=== PATIENT | male | born 1940 | race African-American/Black ===

== ENCOUNTER 2019-02-17 12:41 | Inpatient (IN) | payer MEDICARE, MEDICAID ==
[~2019-02-17] VITALS: Ht 177.8 cm; Wt 112.2 kg
[2019-02-17 12:50] VITALS: BP 86/45
--- NOTE | 2019-02-17 13:48 | Emergency Room Report ---
History of Present Illness General Chief Complaint: Abnormal Labs Source: Patient, EMS Present Illness HPI Patient discharged 8 days ago from [facility]. He was admitted for edema and having difficulty walking. Apparently prior to that hospitalization he stopped taking his medication as his was hospitalized multiple times for strokes and he was trying to take care of her. He says that his potassium was "0" and then replaced. Allegedly sent in for high potassium at this time. He states that the edema is much better. He's had a convalescent rehabilitation facility at this time. No fevers, chills, chest pain, palpitations, nausea, vomiting, diarrhea, dysuria , abdominal pain, shortness of breath, depression, visual changes, headache. History of diabetes History of hypertension History of anemia Allergies: Coded Allergies: No Known Allergies (Unverified , 02/17/19) Patient History Past Medical History: see triage record Social History: Reports: smoking Social History Narrative Reviewed Nursing Documentation: PMH: Agreed; PSxH: Agreed Nursing Documentation-PMH Hx Cardiac Problems: Yes - anemia, hperlipidemia Hx Hypertension: Yes Hx Diabetes: Yes Review of Systems All Other Systems: negative except mentioned in HPI Physical Exam Vital Signs Date Time Temp Pulse Resp B/P (MAP) Pulse Ox O2 Delivery O2 Flow Rate FiO2 02/17/19 12:32 98.6 88 20 86/45 (59) 97 Room Air Sp02 EP Interpretation: reviewed, normal General Appearance: well appearing, no apparent distress, GCS 15, non-toxic Head: normocephalic Eyes: bilateral eye normal inspection, bilateral eye PERRL, bilateral eye EOMI ENT: moist mucus membranes Neck: supple Respiratory: lungs clear, normal breath sounds Cardiovascular #1: regular rate, rhythm, no edema Cardiovascular #2: 2+ radial (R) Gastrointestinal: normal inspection, normal bowel sounds, non tender, no mass, non-distended Musculoskeletal: back normal, gait/station normal, normal range of motion Neurologic: alert, oriented x3, grossly normal Psychiatric: mood/affect normal Skin: normal inspection, warm/dry Medical Decision Making Diagnostic Impression: Primary Impression: ARF (acute renal failure) Qualified Codes: N17.9 - Acute kidney failure, unspecified Additional Impression: Hyperkalemia ER Course Patient presents with alleged hyperkalemia. Differential includes renal failure , acute overaggressive potassium replacement, abnormal medications amongst others. The patient will be evaluated with EKG, chest x-ray and labs. The patient will be treated with general gentle IV hydration initially. EKG with sinus bradycardia with nonspecific ST-T wave changes rate of 59. CXR clear. Labs with ARF and elevated K. ARF, hyperkalemia. Treatment begun. Emergent dialysis not indicated. FE sodium suggests pre-renal (0.3%). Hydration continued. Admit telemetry, Dr. Castellon. Laboratory Tests Test 02/17/19 13:50 White Blood Count 9.0 K/UL (4.8-10.8) Red Blood Count 4.60 M/UL (4.70-6.10) L Hemoglobin 12.0 G/DL (14.2-18.0) L Hematocrit 39.5 % (42.0-52.0) L Mean Corpuscular Volume 86 FL (80-99) Mean Corpuscular Hemoglobin 26.1 PG (27.0-31.0) L Mean Corpuscular Hemoglobin Concent 30.4 G/DL (32.0-36.0) L Red Cell Distribution Width 16.8 % (11.6-14.8) H Platelet Count 594 K/UL (150-450) H Mean Platelet Volume 6.3 FL (6.5-10.1) L Neutrophils (%) (Auto) 52.0 % (45.0-75.0) Lymphocytes (%) (Auto) 34.9 % (20.0-45.0) Monocytes (%) (Auto) 9.4 % (1.0-10.0) Eosinophils (%) (Auto) 2.3 % (0.0-3.0) Basophils (%) (Auto) 1.4 % (0.0-2.0) Prothrombin Time 10.8 SEC (9.30-11.50) Prothrombin Time INR 1.0 (0.9-1.1) PTT 32 SEC (23-33) Urine Color Radha Urine Appearance Slightly cloudy Urine pH 5 (4.5-8.0) Urine Specific [place] 1.020 (1.005-1.035) Urine Protein 2+ (NEGATIVE) H Urine Glucose (UA) Negative (NEGATIVE) Urine Ketones 1+ (NEGATIVE) H Urine Blood 1+ (NEGATIVE) H Urine Nitrite Negative (NEGATIVE) Urine Bilirubin 2+ (NEGATIVE) H Urine Ictotest Negative (NEGATIVE) Urine Urobilinogen 1 MG/DL (0.0-1.0) H Urine Leukocyte Esterase 3+ (NEGATIVE) H Urine RBC 0-2 /HPF (0 - 0) H Urine WBC 20-30 /HPF (0 - 0) H Urine Squamous Epithelial Cells Moderate /LPF (NONE/OCC) H Urine Bacteria Moderate /HPF (NONE) H Urine Random Sodium 32 mmol/L (20-110) Urine Creatinine 322.1 MG/DL (30.0-125.0) H Sodium Level 139 MMOL/L (136-145) Potassium Level 6.7 MMOL/L (3.5-5.1) *H Chloride Level 108 MMOL/L (98-107) H Carbon Dioxide Level 20 MMOL/L (21-32) L Anion Gap 10 mmol/L (5-15) Blood Urea Nitrogen 42 mg/dL (7-18) H Creatinine 3.7 MG/DL (0.55-1.30) H Estimate Glomerular Filtration Rate mL/min (>60) Glucose Level 99 MG/DL (74-106) Calcium Level 9.3 MG/DL (8.5-10.1) Total Bilirubin 0.2 MG/DL (0.2-1.0) Aspartate Amino Transferase (AST) 20 U/L (15-37) Alanine Aminotransferase (ALT) 18 U/L (12-78) Alkaline Phosphatase 49 U/L (46-116) Total Creatine Kinase 70 U/L (26-308) Troponin I 0.000 ng/mL (0.000-0.056) Pro-B-Type Natriuretic Peptide 67 pg/mL (0-125) Total Protein 7.9 G/DL (6.4-8.2) Albumin 3.0 G/DL (3.4-5.0) L Globulin 4.9 g/dL Albumin/Globulin Ratio 0.6 (1.0-2.7) L EKG Diagnostic Results Rate: bradycardiac Rhythm: NSR ST Segments: no acute changes Rhythm Strip Diag. Results EP Interpretation: yes Rhythm: no PVC's, no ectopy, other - Bradycardia Chest X-Ray Diagnostic Results Chest X-Ray Diagnostic Results : Chest X-Ray Ordered: Yes # of Views/Limited/Complete: 1 View Indication: Other EP Interpretation: Yes Interpretation: no consolidation, no effusion, no pneumothorax Impression: No acute disease Electronically Signed by: Electronically signed by Alex Briggs MD Last Vital Signs Date Time Temp Pulse Resp B/P (MAP) Pulse Ox O2 Delivery O2 Flow Rate FiO2 02/17/19 21:00 Room Air 02/17/19 20:00 78 02/17/19 20:00 97.8 20 120/58 (78) 99 Status: improved Disposition: ADMITTED INPATIENT Condition: Serious Alex Briggs MD Feb 17, 2019 13:48
[2019-02-17] MEDS: Sodium Chloride 550 ML IV SCH ×3 (13:54→17:50)
[2019-02-17 14:12] LABS: APPEARANCE,URINE SLIGHTLY CLOUDY; BILIRUBIN, URINE 2+ (NEGATIVE); COLOR,URINE AMBER; GLUCOSE, URINE (UA) NEGATIVE (NEGATIVE); KETONES,URINE 1+ (NEGATIVE); LEUKOCYTE ESTERASE ,URINE 3+ (NEGATIVE); NITRITE,URINE NEGATIVE (NEGATIVE); PH,URINE 5 (4.5-8.0); PROTEIN,URINE 2+ (NEGATIVE); UROBILINOGEN,URINE 1 MG/DL (0.0-1.0)
[2019-02-17 14:14] LABS: BASOPHILS % (AUTO) 1.4 % (0.0-2.0); EOSINOPHILS % (AUTO) 2.3 % (0.0-3.0); HEMATOCRIT 39.5 % (42.0-52.0); LYMPHOCYTES % (AUTO) 34.9 % (20.0-45.0); MEAN CORPUSCULAR VOLUME 86 FL (80-99); MONOCYTES % (AUTO) 9.4 % (1.0-10.0); PLATELET COUNT 594 K/UL (150-450); RED CELL DISTRIBUTION WIDTH 16.8 % (11.6-14.8)
[2019-02-17 14:43] LABS: ALANINE AMINOTRANSFERASE 18 U/L (12-78); ALBUMIN/GLOBULIN RATIO 0.6 (1.0-2.7); ALKALINE PHOSPHATASE 49 U/L (46-116); ANION GAP 10 mmol/L (5-15); ASPARTATE AMINO TRANSFERASE 20 U/L (15-37); BILIRUBIN,TOTAL 0.2 MG/DL (0.2-1.0); BLOOD UREA NITROGEN 42 mg/dL (7-18); CALCIUM 9.3 MG/DL (8.5-10.1); CARBON DIOXIDE 20 MMOL/L (21-32); CHLORIDE 108 MMOL/L (98-107); CREATINE KINASE 70 U/L (26-308); CREATININE 3.7 MG/DL (0.55-1.30); SODIUM 139 MMOL/L (136-145)
[2019-02-17] MEDS ORDERED: cefTRIAXone 1 GM in NS 55 ML IVPB ONE (14:45)
[2019-02-17 14:46] LABS: POTASSIUM 6.7 MMOL/L (3.5-5.1)
[2019-02-17] MEDS ORDERED: Calcium Gluconate 1gm/10ml vial IVP ONE (15:00)
[2019-02-17] MEDS ORDERED: Sodium Polystyrene Sulfonate 15gm Powder ORAL ONE (15:00)
[2019-02-17] MEDS ORDERED: Albuterol/Ipratropium 3ml neb HHN PRN (16:00)
[2019-02-17] MEDS ORDERED: Morphine Sulfate 2mg/ml Inj(IV/IM USE ONLY) IVP PRN (16:00)
[2019-02-17] MEDS ORDERED: Zolpidem 5mg tab ORAL PRN (16:00)
[2019-02-17 16:11] VITALS: BP 121/59
[2019-02-17] MEDS ORDERED: Dextrose 50% 25ml Syringe IV PRN (16:15)
[2019-02-17] MEDS: NovoLOG Insulin Flexpen SUBQ SCH ×2 (16:30→21:10)
[2019-02-17] MEDS ORDERED: NKM (16:44)
[2019-02-17 17:35] VITALS: BP 118/55
--- NOTE | 2019-02-17 19:00 | History & Physical ---
History and Physical History & Physicial Dictated for Int Med-Dr Castellon no.[id number]. Braeden Barnes MD Feb 17, 2019 19:00
[2019-02-17 20:00] VITALS: BP 120/58
[2019-02-17 20:48] LABS: ANION GAP 7 mmol/L (5-15); BLOOD UREA NITROGEN 43 mg/dL (7-18); CALCIUM 8.8 MG/DL (8.5-10.1); CARBON DIOXIDE 21 MMOL/L (21-32); CHLORIDE 108 MMOL/L (98-107); CREATININE 3.1 MG/DL (0.55-1.30); POTASSIUM 5.3 MMOL/L (3.5-5.1); SODIUM 136 MMOL/L (136-145)
[2019-02-17] MEDS: Heparin 5000 units/ml inj SUBQ SCH (21:15)
[2019-02-18] VITALS: BP 146/72
--- NOTE | 2019-02-18 | History and Physical Report ---
DATE OF ADMISSION: 02/17/2019 CHIEF COMPLAINT: The patient is a 78-year-old male, who presents with a chief complaint of abnormal laboratories. HISTORY OF PRESENT ILLNESS: The patient was apparently admitted to [facility] 2 weeks ago. The patient was discharged 8 days ago. The patient was admitted for generalized weakness. The patient was found to have hypokalemia. The patient was discharged to [facility]. Routine laboratories drawn at [facility] revealed potassium of 6.2. BUN and creatinine were found to be elevated at 34 and 2.87. The patient was referred to [facility] for new onset renal failure and hyperkalemia. The patient is admitted for hyperkalemia and new onset renal failure. REVIEW OF SYSTEMS: CONSTITUTIONAL: The patient denies weight loss or weight gain. The patient denies fevers or chills. HEENT: The patient denies ear or throat pain. The patient denies headache. CARDIOVASCULAR: The patient denies palpitations or chest pain. CHEST: The patient denies wheeze or shortness of breath. ABDOMINAL: The patient denies nausea, vomiting, diarrhea, or constipation. GENITOURINARY: The patient denies dysuria or increased frequency of urination. NEUROMUSCULAR: The patient complains of generalized weakness as above. The patient denies seizures. PAST MEDICAL HISTORY: Significant for: 1. Hypertension. 2. Diabetes type 2. 3. Osteoarthritis, generalized. 4. Gout. 5. Hypercholesterolemia. 6. Anemia. 7. Gastroesophageal reflux disease. PAST SURGICAL HISTORY: The patient denies. CURRENT MEDICATIONS: 1. Allopurinol 300 mg p.o. daily. 2. Aspirin 81 mg p.o. daily. 3. Lovenox 40 mg subcutaneously daily. 4. Iron sulfate 325 mg p.o. daily. 5. Folic acid 1 mg p.o. daily. 6. Indomethacin 50 mg p.o. 3 times daily. 7. Lispro sliding scale. 8. Magnesium oxide 400 mg p.o. twice daily. 9. Nifedipine ER 90 mg p.o. daily. 10. [place] 5/325 mg one tablet p.o. q.4 hours p.r.n. 11. Potassium chloride 20 mEq p.o. twice daily. 12. Ranitidine 150 mg p.o. twice daily. 13. Simvastatin 10 mg p.o. daily. 14. Atenolol. ALLERGIES: No known drug allergies. SOCIAL HISTORY: The patient is . The patient denies tobacco use and is currently on a NicoDerm patch. The patient admits to rare alcohol use. PHYSICAL EXAMINATION: VITAL SIGNS: Temperature 98.6, respirations 20, pulse 88, and blood pressure 86/45. GENERAL: The patient is a well-developed and well-nourished male, in no apparent distress. HEENT: Eyes, pupils are equal and responsive to light and accommodation. Extraocular movements are intact. NECK: Supple without lymphadenopathy. CHEST: Lungs are clear to auscultation bilaterally without wheezes or rales. CARDIOVASCULAR: Regular rhythm and rate. S1, S2 are normal without murmurs, rubs, or gallops. ABDOMEN: Soft, nontender, and nondistended. Positive bowel sounds. No evidence of hepatosplenomegaly. Currently, no rebound or guarding noted. EXTREMITY: Negative for clubbing, cyanosis, or edema. RECTAL/GENITAL: Refused. NEUROLOGIC: Cranial nerves II through XII are grossly intact without focal deficits. Motor strength is 5/5 bilaterally. Deep tendon reflexes are 2+ plantar. LABORATORY STUDIES: WBC 9.2, hemoglobin 12.2, hematocrit 39.5, and platelets 594,000. Sodium 139, potassium 6.7, chloride 108, CO2 20, BUN 42, creatinine 3.7, and glucose 99. Troponin 0.0. ASSESSMENT: This is a 78-year-old male. 1. Hyperkalemia. 2. New onset renal failure. 3. Hypertension. 4. Diabetes type 2. 5. Gout. 6. Osteoarthritis. 7. Gastroesophageal reflux disease. 8. Osteoarthritis. 9. Generalized weakness. TREATMENT: 1. Hyperkalemia/renal failure. The patient has received Kayexalate. A Nephrology consultation has been obtained with Dr. Vinson. Hyperkalemia may be secondary to renal failure. We will follow recommendations of Nephrology. 2. Hypertension. The patient is currently hypotensive. 3. Diabetes type 2. A NovoLog sliding scale has been instituted. 4. Gout. Continue allopurinol as above. 5. Osteoarthritis. 6. Gastroesophageal reflux disease. Continue ranitidine as above. 7. Osteoarthritis. Braeden Barnes M.D. DR: JAMISON JOB#: [id number] CC:
[2019-02-18] MEDS: Sodium Chloride 550 ML IV SCH ×2 (03:40→06:24)
[2019-02-18 04:00] VITALS: BP 115/55
[2019-02-18] MEDS: NovoLOG Insulin Flexpen SUBQ SCH ×4 (06:07→21:00)
[2019-02-18 08:00] VITALS: BP 104/75
[2019-02-18] MEDS: Sodium Polystyrene Sulfonate 15gm Powder ORAL SCH (09:06)
[2019-02-18] MEDS: Heparin 5000 units/ml inj SUBQ SCH ×2 (09:06→21:46)
[2019-02-18 11:07] LABS: EOSINOPHILS % (AUTO) 3.4 % (0.0-3.0); HEMATOCRIT 39.7 % (42.0-52.0); LYMPHOCYTES % (AUTO) 35.4 % (20.0-45.0); MEAN CORPUSCULAR VOLUME 86 FL (80-99); MONOCYTES % (AUTO) 9.4 % (1.0-10.0); NEUTROPHILS % (AUTO) 50.9 % (45.0-75.0); PLATELET COUNT 591 K/UL (150-450); RED BLOOD COUNT 4.64 M/UL (4.70-6.10); RED CELL DISTRIBUTION WIDTH 17.1 % (11.6-14.8); WHITE BLOOD COUNT 7.4 K/UL (4.8-10.8)
[2019-02-18 11:16] LABS: ALBUMIN 2.8 G/DL (3.4-5.0); ANION GAP 7 mmol/L (5-15); ASPARTATE AMINO TRANSFERASE 14 U/L (15-37); BLOOD UREA NITROGEN 39 mg/dL (7-18); CALCIUM 8.8 MG/DL (8.5-10.1); CARBON DIOXIDE 24 MMOL/L (21-32); CHLORIDE 108 MMOL/L (98-107); POTASSIUM 5.2 MMOL/L (3.5-5.1); SODIUM 139 MMOL/L (136-145)
[2019-02-18 11:28] LABS: PHOSPHORUS 3.1 MG/DL (2.5-4.9)
[2019-02-18 11:42] LABS: ALANINE AMINOTRANSFERASE 20 U/L (12-78); ALKALINE PHOSPHATASE 49 U/L (46-116); BILIRUBIN,TOTAL 0.2 MG/DL (0.2-1.0); CHOLESTEROL 111 MG/DL (< 200); CREATININE 2.1 MG/DL (0.55-1.30); HDL CHOLESTEROL 33 MG/DL (40-60); TRIGLYCERIDES 122 MG/DL (30-150)
[2019-02-18 11:45] LABS: ALBUMIN/GLOBULIN RATIO 1.9 (1.0-2.7)
[2019-02-18 12:00] VITALS: BP 132/69
--- NOTE | 2019-02-18 12:53 | Consultation ---
History of Present Illness General Date patient seen: Feb 18, 2019 Chief Complaint: Abnormal Labs Present Illness HPI 78 year old male with hx diabetes, hypertension, Gout, obesity, brought in by paramedics because of increased K. He was admitted to rehab for edema and having difficulty walking. He was found to be in renal failure and admitted to telemetry for further management. No fevers, chills, chest pain, palpitations, nausea, vomiting, diarrhea, dysuria , abdominal pain, shortness of breath, depression, visual changes, headache. Allergies: Coded Allergies: No Known Allergies (Unverified , 02/17/19) Medication History Scheduled No Known Medications* (NKM - No Known Medications*), 0 ., (Reported) Patient History Healthcare decision maker N Resuscitation status Full Code Advanced Directive on File Past Medical/Surgical History Past Medical/Surgical History: (1) Gout (2) Diabetes mellitus Review of Systems Constitutional: Reports: no symptoms Neurological: Reports: no symptoms Physical Exam General Appearance: WD/WN, no apparent distress Lines, tubes and drains: peripheral HEENT: normocephalic, atraumatic Neck: non-tender, normal alignment Respiratory/Chest: chest wall non-tender, lungs clear Cardiovascular/Chest: normal peripheral pulses, normal rate Abdomen: normal bowel sounds, non tender Extremities: moderate edema Skin Exam: normal pigmentation Last 24 Hour Vital Signs Date Time Temp Pulse Resp B/P (MAP) Pulse Ox O2 Delivery O2 Flow Rate FiO2 02/18/19 12:00 97.7 88 20 132/69 (90) 99 02/18/19 09:00 Room Air 02/18/19 08:00 83 02/18/19 08:00 98.7 89 20 104/75 (85) 93 02/18/19 06:38 91 18 96 Room Air 21 02/18/19 04:00 83 02/18/19 04:00 98.9 87 18 115/55 (75) 96 02/18/19 00:00 97.5 77 18 146/72 (96) 99 02/18/19 00:00 73 02/17/19 21:00 Room Air 02/17/19 20:00 78 02/17/19 20:00 97.8 90 20 120/58 (78) 99 02/17/19 17:35 97.5 92 20 118/55 (76) 98 02/17/19 17:31 Room Air 02/17/19 17:00 98.6 82 22 121/59 94 Room Air 02/17/19 16:11 82 22 121/59 94 Room Air 02/17/19 12:50 98.6 88 20 86/45 97 Room Air Intake and Output 02/17/19 02/18/19 19:00 07:00 Intake Total 1605 ml Balance 1605 ml Intake Oral 400 ml IV Total 1205 ml # Voids 2 2 # Bowel Movements 2 Laboratory Tests Test 02/17/19 13:50 02/17/19 20:32 02/18/19 10:45 White Blood Count 9.0 K/UL (4.8-10.8) 7.4 K/UL (4.8-10.8) Red Blood Count 4.60 M/UL (4.70-6.10) L 4.64 M/UL (4.70-6.10) L Hemoglobin 12.0 G/DL (14.2-18.0) L 12.0 G/DL (14.2-18.0) L Hematocrit 39.5 % (42.0-52.0) L 39.7 % (42.0-52.0) L Mean Corpuscular Volume 86 FL (80-99) 86 FL (80-99) Mean Corpuscular Hemoglobin 26.1 PG (27.0-31.0) L 25.8 PG (27.0-31.0) L Mean Corpuscular Hemoglobin Concent 30.4 G/DL (32.0-36.0) L 30.1 G/DL (32.0-36.0) L Red Cell Distribution Width 16.8 % (11.6-14.8) H 17.1 % (11.6-14.8) H Platelet Count 594 K/UL (150-450) H 591 K/UL (150-450) H Mean Platelet Volume 6.3 FL (6.5-10.1) L 6.6 FL (6.5-10.1) Neutrophils (%) (Auto) 52.0 % (45.0-75.0) 50.9 % (45.0-75.0) Lymphocytes (%) (Auto) 34.9 % (20.0-45.0) 35.4 % (20.0-45.0) Monocytes (%) (Auto) 9.4 % (1.0-10.0) 9.4 % (1.0-10.0) Eosinophils (%) (Auto) 2.3 % (0.0-3.0) 3.4 % (0.0-3.0) H Basophils (%) (Auto) 1.4 % (0.0-2.0) 1.0 % (0.0-2.0) Prothrombin Time 10.8 SEC (9.30-11.50) Prothromb Time International Ratio 1.0 (0.9-1.1) Activated Partial Thromboplast Time 32 SEC (23-33) Urine Color Radha Urine Appearance Slightly cloudy Urine pH 5 (4.5-8.0) Urine Specific [place] 1.020 (1.005-1.035) Urine Protein 2+ (NEGATIVE) H Urine Glucose (UA) Negative (NEGATIVE) Urine Ketones 1+ (NEGATIVE) H Urine Blood 1+ (NEGATIVE) H Urine Nitrite Negative (NEGATIVE) Urine Bilirubin 2+ (NEGATIVE) H Urine Ictotest Negative (NEGATIVE) Urine Urobilinogen 1 MG/DL (0.0-1.0) H Urine Leukocyte Esterase 3+ (NEGATIVE) H Urine RBC 0-2 /HPF (0 - 0) H Urine WBC 20-30 /HPF (0 - 0) H Urine Squamous Epithelial Cells Moderate /LPF (NONE/OCC) H Urine Bacteria Moderate /HPF (NONE) H Urine Random Sodium 32 mmol/L (20-110) Urine Creatinine 322.1 MG/DL (30.0-125.0) H Sodium Level 139 MMOL/L (136-145) 136 MMOL/L (136-145) 139 MMOL/L (136-145) Potassium Level 6.7 MMOL/L (3.5-5.1) *H 5.3 MMOL/L (3.5-5.1) H 5.2 MMOL/L (3.5-5.1) H Chloride Level 108 MMOL/L (98-107) H 108 MMOL/L (98-107) H 108 MMOL/L (98-107) H Carbon Dioxide Level 20 MMOL/L (21-32) L 21 MMOL/L (21-32) 24 MMOL/L (21-32) Anion Gap 10 mmol/L (5-15) 7 mmol/L (5-15) 7 mmol/L (5-15) Blood Urea Nitrogen 42 mg/dL (7-18) H 43 mg/dL (7-18) H 39 mg/dL (7-18) H Creatinine 3.7 MG/DL (0.55-1.30) H 3.1 MG/DL (0.55-1.30) H 2.1 MG/DL (0.55-1.30) H Estimat Glomerular Filtration Rate mL/min (>60) mL/min (>60) mL/min (>60) Glucose Level 99 MG/DL (74-106) 113 MG/DL (74-106) H 90 MG/DL (74-106) Calcium Level 9.3 MG/DL (8.5-10.1) 8.8 MG/DL (8.5-10.1) 8.8 MG/DL (8.5-10.1) Total Bilirubin 0.2 MG/DL (0.2-1.0) 0.2 MG/DL (0.2-1.0) Aspartate Amino Transf (AST/SGOT) 20 U/L (15-37) 14 U/L (15-37) L Alanine Aminotransferase (ALT/SGPT) 18 U/L (12-78) 20 U/L (12-78) Alkaline Phosphatase 49 U/L (46-116) 49 U/L (46-116) Total Creatine Kinase 70 U/L (26-308) Troponin I 0.000 ng/mL (0.000-0.056) Pro-B-Type Natriuretic Peptide 67 pg/mL (0-125) Total Protein 7.9 G/DL (6.4-8.2) 7.5 G/DL (6.4-8.2) Albumin 3.0 G/DL (3.4-5.0) L 2.8 G/DL (3.4-5.0) L Globulin 4.9 g/dL 4.7 g/dL Albumin/Globulin Ratio 0.6 (1.0-2.7) L 1.9 (1.0-2.7) Hemoglobin A1c 6.2 % (4.3-6.0) H Uric Acid 7.6 MG/DL (2.6-7.2) H Phosphorus Level 3.1 MG/DL (2.5-4.9) Magnesium Level 1.7 MG/DL (1.8-2.4) L Triglycerides Level 122 MG/DL (30-150) Cholesterol Level 111 MG/DL (< 200) LDL Cholesterol 60 mg/dL (<100) HDL Cholesterol 33 MG/DL (40-60) L Cholesterol/HDL Ratio 3.4 (3.3-4.4) Thyroid Stimulating Hormone (TSH) 2.057 uiU/mL (0.358-3.740) Microbiology Date/Time Source Procedure Growth Status 02/17/19 16:10 Nasal Nares MRSA Culture - Final NO METHICILLIN RESISTANT STAPH AUREUS... Complete 02/17/19 13:50 Urine,Clean Catch Urine Culture - Preliminary Gram Negative Bacillus 1 Resulted Height (Feet): 5 Height (Inches): 10.00 Weight (Pounds): 238 Medications Current Medications Medications (Trade) Dose Ordered Sig/Benjamin Route PRN Reason Start Time Stop Time Status Last Admin Dose Admin Acetaminophen (Tylenol) 650 mg Q4H PRN ORAL fever 02/17/19 16:00 03/19/19 15:59 Albuterol/ Ipratropium (Albuterol/ Ipratropium) 3 ml Q6HRT PRN HHN dyspnea 02/17/19 16:00 02/22/19 15:59 Clonidine HCl (Catapres Tab) 0.1 mg Q4H PRN ORAL For High Blood Pressure 02/17/19 16:00 03/19/19 15:59 Dextrose (Dextrose 50%) 25 ml Q30M PRN IV Hypoglycemia 02/17/19 16:15 03/19/19 16:05 Dextrose (Dextrose 50%) 50 ml Q30M PRN IV hypoglycemia 02/17/19 16:15 03/19/19 16:14 Heparin Sodium (Porcine) (Heparin 5000 units/ml) 5,000 units EVERY 12 HOURS SUBQ 02/17/19 21:00 03/19/19 20:59 02/18/19 09:06 Insulin Aspart (NovoLOG) BEFORE MEALS AND HS SUBQ 02/17/19 16:30 03/19/19 16:29 02/17/19 21:10 Magnesium Sulfate 100 ml @ 100 mls/hr ONCE ONCE IVPB 02/18/19 13:00 02/18/19 13:59 02/18/19 12:37 Morphine Sulfate (Morphine Sulfate) 1 mg Q4H PRN IVP For Pain 02/17/19 16:00 02/24/19 15:59 Ondansetron HCl (Zofran) 4 mg Q6H PRN IVP Nausea & Vomiting 02/17/19 16:00 03/19/19 15:59 Sodium Polystyrene Sulfonate (Kayexalate) 45 gm DAILY ORAL 02/18/19 09:00 02/21/19 08:59 02/18/19 09:06 Zolpidem Tartrate (Ambien) 5 mg HSPRN PRN ORAL Insomnia 02/17/19 16:00 02/24/19 15:59 Assessment/Plan Problem List: (1) ATN (acute tubular necrosis) ICD Codes: N17.0 - Acute kidney failure with tubular necrosis SNOMED: 24253067 (2) ARF (acute renal failure) ICD Codes: N17.9 - Acute kidney failure, unspecified SNOMED: 91899222 Qualifiers: Qualified Codes: N17.9 - Acute kidney failure, unspecified (3) Hyperkalemia ICD Codes: E87.5 - Hyperkalemia SNOMED: 22451471 (4) Peripheral edema ICD Codes: R60.9 - Edema, unspecified SNOMED: 612574100 (5) Diabetes mellitus ICD Codes: E11.9 - Type 2 diabetes mellitus without complications SNOMED: 27902567 (6) History of hypertension ICD Codes: Z86.79 - Personal history of other diseases of the circulatory system SNOMED: 963482409 (7) Gout ICD Codes: M10.9 - Gout, unspecified SNOMED: 21665882 Assessment/Plan: Kayexalete renal evaluation urine electrolytes sliding scale f/u uric acid level, continue allopurinol venous doppler of legs monitor BP USP meds reviewed. Kristine Pedraza MD Feb 18, 2019 12:52
[2019-02-18 13:11] LABS: CREATINE KINASE 50 U/L (26-308)
--- NOTE | 2019-02-18 13:27 | Internal Med Progress Note ---
Subjective Physician Name Pola Castellon Attending Physician Pola Castellon MD Current Medications Medications (Trade) Dose Ordered Sig/Benjamin Route PRN Reason Start Time Stop Time Status Last Admin Dose Admin Acetaminophen (Tylenol) 650 mg Q4H PRN ORAL fever 02/17/19 16:00 03/19/19 15:59 Albuterol/ Ipratropium (Albuterol/ Ipratropium) 3 ml Q6HRT PRN HHN dyspnea 02/17/19 16:00 02/22/19 15:59 Clonidine HCl (Catapres Tab) 0.1 mg Q4H PRN ORAL For High Blood Pressure 02/17/19 16:00 03/19/19 15:59 Dextrose (Dextrose 50%) 25 ml Q30M PRN IV Hypoglycemia 02/17/19 16:15 03/19/19 16:05 Dextrose (Dextrose 50%) 50 ml Q30M PRN IV hypoglycemia 02/17/19 16:15 03/19/19 16:14 Heparin Sodium (Porcine) (Heparin 5000 units/ml) 5,000 units EVERY 12 HOURS SUBQ 02/17/19 21:00 03/19/19 20:59 02/18/19 09:06 Insulin Aspart (NovoLOG) BEFORE MEALS AND HS SUBQ 02/17/19 16:30 03/19/19 16:29 02/17/19 21:10 Magnesium Sulfate 100 ml @ 100 mls/hr ONCE ONCE IVPB 02/18/19 13:00 02/18/19 13:59 02/18/19 12:37 Morphine Sulfate (Morphine Sulfate) 1 mg Q4H PRN IVP For Pain 02/17/19 16:00 02/24/19 15:59 Ondansetron HCl (Zofran) 4 mg Q6H PRN IVP Nausea & Vomiting 02/17/19 16:00 03/19/19 15:59 Sodium Polystyrene Sulfonate (Kayexalate) 45 gm DAILY ORAL 02/18/19 09:00 02/21/19 08:59 02/18/19 09:06 Zolpidem Tartrate (Ambien) 5 mg HSPRN PRN ORAL Insomnia 02/17/19 16:00 02/24/19 15:59 Allergies: Coded Allergies: No Known Allergies (Unverified , 02/17/19) Subjective awake, alert, responsive, No CP or SOB, C/O knee pain. Objective Last Vital Signs Date Time Temp Pulse Resp B/P (MAP) Pulse Ox O2 Delivery O2 Flow Rate FiO2 02/18/19 12:00 97.7 88 20 132/69 (90) 99 02/18/19 09:00 Room Air 02/18/19 06:38 21 Laboratory Tests Test 02/17/19 13:50 02/17/19 20:32 02/18/19 10:45 White Blood Count 9.0 K/UL (4.8-10.8) 7.4 K/UL (4.8-10.8) Red Blood Count 4.60 M/UL (4.70-6.10) L 4.64 M/UL (4.70-6.10) L Hemoglobin 12.0 G/DL (14.2-18.0) L 12.0 G/DL (14.2-18.0) L Hematocrit 39.5 % (42.0-52.0) L 39.7 % (42.0-52.0) L Mean Corpuscular Volume 86 FL (80-99) 86 FL (80-99) Mean Corpuscular Hemoglobin 26.1 PG (27.0-31.0) L 25.8 PG (27.0-31.0) L Mean Corpuscular Hemoglobin Concent 30.4 G/DL (32.0-36.0) L 30.1 G/DL (32.0-36.0) L Red Cell Distribution Width 16.8 % (11.6-14.8) H 17.1 % (11.6-14.8) H Platelet Count 594 K/UL (150-450) H 591 K/UL (150-450) H Mean Platelet Volume 6.3 FL (6.5-10.1) L 6.6 FL (6.5-10.1) Neutrophils (%) (Auto) 52.0 % (45.0-75.0) 50.9 % (45.0-75.0) Lymphocytes (%) (Auto) 34.9 % (20.0-45.0) 35.4 % (20.0-45.0) Monocytes (%) (Auto) 9.4 % (1.0-10.0) 9.4 % (1.0-10.0) Eosinophils (%) (Auto) 2.3 % (0.0-3.0) 3.4 % (0.0-3.0) H Basophils (%) (Auto) 1.4 % (0.0-2.0) 1.0 % (0.0-2.0) Prothrombin Time 10.8 SEC (9.30-11.50) Prothromb Time International Ratio 1.0 (0.9-1.1) Activated Partial Thromboplast Time 32 SEC (23-33) Urine Color Radha Urine Appearance Slightly cloudy Urine pH 5 (4.5-8.0) Urine Specific [place] 1.020 (1.005-1.035) Urine Protein 2+ (NEGATIVE) H Urine Glucose (UA) Negative (NEGATIVE) Urine Ketones 1+ (NEGATIVE) H Urine Blood 1+ (NEGATIVE) H Urine Nitrite Negative (NEGATIVE) Urine Bilirubin 2+ (NEGATIVE) H Urine Ictotest Negative (NEGATIVE) Urine Urobilinogen 1 MG/DL (0.0-1.0) H Urine Leukocyte Esterase 3+ (NEGATIVE) H Urine RBC 0-2 /HPF (0 - 0) H Urine WBC 20-30 /HPF (0 - 0) H Urine Squamous Epithelial Cells Moderate /LPF (NONE/OCC) H Urine Bacteria Moderate /HPF (NONE) H Urine Random Sodium 32 mmol/L (20-110) Urine Creatinine 322.1 MG/DL (30.0-125.0) H Sodium Level 139 MMOL/L (136-145) 136 MMOL/L (136-145) 139 MMOL/L (136-145) Potassium Level 6.7 MMOL/L (3.5-5.1) *H 5.3 MMOL/L (3.5-5.1) H 5.2 MMOL/L (3.5-5.1) H Chloride Level 108 MMOL/L (98-107) H 108 MMOL/L (98-107) H 108 MMOL/L (98-107) H Carbon Dioxide Level 20 MMOL/L (21-32) L 21 MMOL/L (21-32) 24 MMOL/L (21-32) Anion Gap 10 mmol/L (5-15) 7 mmol/L (5-15) 7 mmol/L (5-15) Blood Urea Nitrogen 42 mg/dL (7-18) H 43 mg/dL (7-18) H 39 mg/dL (7-18) H Creatinine 3.7 MG/DL (0.55-1.30) H 3.1 MG/DL (0.55-1.30) H 2.1 MG/DL (0.55-1.30) H Estimat Glomerular Filtration Rate mL/min (>60) mL/min (>60) mL/min (>60) Glucose Level 99 MG/DL (74-106) 113 MG/DL (74-106) H 90 MG/DL (74-106) Calcium Level 9.3 MG/DL (8.5-10.1) 8.8 MG/DL (8.5-10.1) 8.8 MG/DL (8.5-10.1) Total Bilirubin 0.2 MG/DL (0.2-1.0) 0.2 MG/DL (0.2-1.0) Aspartate Amino Transf (AST/SGOT) 20 U/L (15-37) 14 U/L (15-37) L Alanine Aminotransferase (ALT/SGPT) 18 U/L (12-78) 20 U/L (12-78) Alkaline Phosphatase 49 U/L (46-116) 49 U/L (46-116) Total Creatine Kinase 70 U/L (26-308) 50 U/L (26-308) Troponin I 0.000 ng/mL (0.000-0.056) Pro-B-Type Natriuretic Peptide 67 pg/mL (0-125) Total Protein 7.9 G/DL (6.4-8.2) 7.5 G/DL (6.4-8.2) Albumin 3.0 G/DL (3.4-5.0) L 2.8 G/DL (3.4-5.0) L Globulin 4.9 g/dL 4.7 g/dL Albumin/Globulin Ratio 0.6 (1.0-2.7) L 1.9 (1.0-2.7) Hemoglobin A1c 6.2 % (4.3-6.0) H Uric Acid 6.7 MG/DL (2.6-7.2) Phosphorus Level 3.1 MG/DL (2.5-4.9) Magnesium Level 1.7 MG/DL (1.8-2.4) L Triglycerides Level 122 MG/DL (30-150) Cholesterol Level 111 MG/DL (< 200) LDL Cholesterol 60 mg/dL (<100) HDL Cholesterol 33 MG/DL (40-60) L Cholesterol/HDL Ratio 3.4 (3.3-4.4) Thyroid Stimulating Hormone (TSH) 2.057 uiU/mL (0.358-3.740) Microbiology Date/Time Source Procedure Growth Status 02/17/19 16:10 Nasal Nares MRSA Culture - Final NO METHICILLIN RESISTANT STAPH AUREUS... Complete 02/17/19 13:50 Urine,Clean Catch Urine Culture - Preliminary Gram Negative Bacillus 1 Resulted Intake and Output 02/17/19 02/18/19 19:00 07:00 Intake Total 1605 ml Balance 1605 ml Intake Oral 400 ml IV Total 1205 ml # Voids 2 2 # Bowel Movements 2 Objective General: No acute distress, awake and alert HEENT: NCAT, sclera anicteric, PERRL, EOMI. Neck: Supple, no significant jugular venous distention, Lungs: Good inspiratory effort, no accessory muscle use, clear to auscultation bilaterally, no Wheeze or Rales. Heart: Regular rate and rhythm, normal S1/S2, no murmur. Abdomen: soft, nontender, nondistended. Normoactive bowel sounds, morbid obesity. / Rectal: Refused and deferred. Extremities: No Cyanosis , clubbing or edema. Neuro: A&O x 3, Able to move all extremities Skin: warm, no rashes or lesions Psych: Normal mood and affect Assessment/Plan Assessment/Plan 1. Hyperkalemia. 2. New onset renal failure. 3. Hypertension. 4. Diabetes type 2. 5. Gout. 6. Osteoarthritis. 7. Gastroesophageal reflux disease. 8. Osteoarthritis. 9. Generalized weakness. TREATMENT: 1. Hyperkalemia/renal failure. The patient has received Kayexalate. A Nephrology consultation has been obtained with Dr. Vinson. Hyperkalemia may be secondary to renal failure. We will follow recommendations of Nephrology. 2. Hypertension. 3. Diabetes type 2. A NovoLog sliding scale has been instituted. 4. Gout. Continue allopurinol as above. 5. Osteoarthritis. 6. Gastroesophageal reflux disease. Continue ranitidine as above. 7. Osteoarthritis. monitor labs DC telemetry Pola Castellon MD Feb 18, 2019 13:27
[2019-02-18 16:00] VITALS: BP 135/70
--- NOTE | 2019-02-18 16:48 | Consultation ---
Consult Note Consult Note asked to evaluate for renal failure patient poor historian interviewed examined data reviewed ER: Patient discharged 8 days ago from [facility]. He was admitted for edema and having difficulty walking. Apparently prior to that hospitalization he stopped taking his medication as his was hospitalized multiple times for strokes and he was trying to take care of her. He says that his potassium was "0" and then replaced. Allegedly sent in for high potassium at this time. He states that the edema is much better. He's had a convalescent rehabilitation facility at this time. No fevers, chills, chest pain, palpitations, nausea, vomiting, diarrhea, dysuria , abdominal pain, shortness of breath, depression, visual changes, headache. History of diabetes History of hypertension History of anemia No Known Allergies (Unverified , 02/17/19) Hx Cardiac Problems: Yes - anemia, hperlipidemia Hx Hypertension: Yes Hx Diabetes: Yes Assessment/Plan New onset renal failure. Hyperkalemia. likely pre renal ( Dehydration) superimposed on Renal Hypertension. Diabetes type 2. Gout. Osteoarthritis. Gastroesophageal reflux disease. Slow Hydrate Keep BP and BS in check avoid Nephrotoxics urine studies 2D echo monitor renal parameters per orders Grady Vinson MD Feb 18, 2019 16:48
[2019-02-18 17:06] LABS: APPEARANCE,URINE CLEAR; BILIRUBIN, URINE NEGATIVE (NEGATIVE); COLOR,URINE PALE YELLOW; GLUCOSE, URINE (UA) NEGATIVE (NEGATIVE); KETONES,URINE NEGATIVE (NEGATIVE); LEUKOCYTE ESTERASE ,URINE 1+ (NEGATIVE); NITRITE,URINE NEGATIVE (NEGATIVE); PH,URINE 5 (4.5-8.0); PROTEIN,URINE NEGATIVE (NEGATIVE); UROBILINOGEN,URINE NORMAL MG/DL (0.0-1.0)
[2019-02-18] MEDS: Docusate 100mg cap ORAL SCH (17:21)
[2019-02-18] MEDS: D5 1/2NS 1,000 ML IV SCH (17:27)
--- NOTE | 2019-02-18 17:46 | Diagnostic Imaging Report ---
Indication: Dyspnea Comparison: None A single view chest radiograph was obtained. Findings: Cardiomediastinal appearance is within normal limits for age. The lungs are clear. Pulmonary vascularity is appropriate. The diaphragmatic contour is smooth and costophrenic angles are sharp. No pleural effusions are identified. The bones are unremarkable. Impression: No acute findings
--- NOTE | 2019-02-18 17:47 | Cardiology Report ---
APPROVED REPORT EXAM: Two-dimensional and M-mode echocardiogram with Doppler and color Doppler. INDICATION LV FUNCTION M-Mode DIMENSIONS IVSd1.2 (0.7-1.1cm)Left Atrium (MM)3.9 (1.6-4.0cm) LVDd4.8 (3.5-5.6cm)Aortic Root3.2 (2.0-3.7cm) PWd0.8 (0.7-1.1cm)Aortic Cusp Exc.1.9 (1.5-2.0cm) IVSs1.2 cm LVDs3.1 (2.5-4.0cm) PWs1.7 cm Technically difficult study due to poor acoustical windows. Normal left ventricular chamber size, systolic function and wall motion to extent visualized. Left ventricular ejection fraction estimated to be 55 %. Mild left ventricular hypertrophy by 2-D. No evidence of pericardial effusion. All other cardiac chamber sizes are within normal limits. Focal aortic valve sclerosis with adequate cusp excursion. Mildly thickened mitral valve leaflets with normal excursion. Mild mitral annulus and aortic root calcification. Pulmonic valve not well visualized. IVC in normal size with physiologic collapse . A color flow and spectral Doppler study was performed and revealed: No aortic insufficiency . Mitral diastolic velocities suggest reduced left ventricular relaxation c/w mild LV diastolic dysfunction (Grade I ) Trace mitral regurgitation. Trace tricuspid regurgitation. Tricuspid systolic velocities suggests peak right ventricular systolic pressure of 16mmHg.
--- NOTE | 2019-02-18 17:48 | Diagnostic Imaging Report ---
Indication: Abnormal renal function tests, hyperkalemia, acute renal failure Technique: Grayscale and duplex images of the kidneys, retroperitoneum, and bladder were obtained. Comparison: none Findings: Right kidney measures 8.6 cm in length. Left kidney measures 9.7 cm in length. Both kidneys demonstrate normal echogenicity. No hydronephrosis. Right kidney demonstrates a 4.6 cm upper pole cyst and other smaller cysts. Normal inferior vena cava. Bladder is normal. Impression: Negative for hydronephrosis Incidental finding right renal cysts.
[2019-02-18 20:00] VITALS: BP 137/72
[2019-02-19] VITALS: BP 144/68
[2019-02-19 04:00] VITALS: BP 141/76
[2019-02-19] MEDS: NovoLOG Insulin Flexpen SUBQ SCH ×4 (05:41→21:00)
[2019-02-19] MEDS: D5 1/2NS 1,000 ML IV SCH ×3 (05:42→23:30)
--- NOTE | 2019-02-19 06:01 | Pulmonology Progress Note ---
Assessment/Plan Problems: (1) ATN (acute tubular necrosis) (2) ARF (acute renal failure) (3) Hyperkalemia (4) Peripheral edema (5) Diabetes mellitus (6) History of hypertension (7) Gout Assessment/Plan improving continue iv fluid renal US noted: Both kidneys demonstrate normal echogenicity echo reviewed Optimize cardiac meds med/surg pt/ot dvt prophylaxis Subjective ROS Limited/Unobtainable: No Interval Events: no new complains Allergies: Coded Allergies: No Known Allergies (Unverified , 02/17/19) Objective Last 24 Hour Vital Signs Date Time Temp Pulse Resp B/P (MAP) Pulse Ox O2 Delivery O2 Flow Rate FiO2 02/19/19 04:00 97.5 66 18 141/76 (97) 98 02/19/19 04:00 59 02/19/19 00:00 69 02/19/19 00:00 98.0 75 18 144/68 (93) 96 02/18/19 21:00 Room Air 02/18/19 20:25 75 18 94 Room Air 21 02/18/19 20:00 98.2 75 18 137/72 (93) 96 02/18/19 20:00 80 02/18/19 16:00 98.7 77 20 135/70 (91) 95 02/18/19 16:00 63 02/18/19 12:00 71 02/18/19 12:00 97.7 88 20 132/69 (90) 99 02/18/19 09:00 Room Air 02/18/19 08:00 83 02/18/19 08:00 98.7 89 20 104/75 (85) 93 02/18/19 06:38 91 18 96 Room Air 21 Intake and Output 02/18/19 02/19/19 18:59 06:59 Intake Total 380 ml Balance 380 ml Intake Oral 140 ml Other 240 ml # Voids 4 General Appearance: WD/WN HEENT: normocephalic, atraumatic Respiratory/Chest: chest wall non-tender, lungs clear Cardiovascular: normal peripheral pulses, regular rhythm, no JVD Abdomen: normal bowel sounds, soft, non tender, no organomegaly Microbiology Date/Time Source Procedure Growth Status 02/17/19 16:10 Nasal Nares MRSA Culture - Final NO METHICILLIN RESISTANT STAPH AUREUS... Complete 02/17/19 13:50 Urine,Clean Catch Urine Culture - Preliminary Gram Negative Bacillus 1 Resulted Laboratory Tests 02/18/19 10:45: White Blood Count 7.4, Red Blood Count 4.64L, Hemoglobin 12.0L, Hematocrit 39.7L , Mean Corpuscular Volume 86, Mean Corpuscular Hemoglobin 25.8L, Mean Corpuscular Hemoglobin Concent 30.1L, Red Cell Distribution Width 17.1H, Platelet Count 591H, Mean Platelet Volume 6.6, Neutrophils (%) (Auto) 50.9, Lymphocytes (%) (Auto) 35.4, Monocytes (%) (Auto) 9.4, Eosinophils (%) (Auto) 3.4H, Basophils (%) (Auto) 1.0, Sodium Level 139, Potassium Level 5.2H, Chloride Level 108H, Carbon Dioxide Level 24, Anion Gap 7, Blood Urea Nitrogen 39H, Creatinine 2.1H, Estimat Glomerular Filtration Rate , Glucose Level 90, Hemoglobin A1c 6.2H, Uric Acid 6.7, Calcium Level 8.8, Phosphorus Level 3.1, Magnesium Level 1.7L, Total Bilirubin 0.2, Aspartate Amino Transf (AST/SGOT) 14L , Alanine Aminotransferase (ALT/SGPT) 20, Alkaline Phosphatase 49, Total Creatine Kinase 50, Total Protein 7.5, Albumin 2.8L, Globulin 4.7, Albumin/ Globulin Ratio 1.9, Triglycerides Level 122, Cholesterol Level 111, LDL Cholesterol 60, HDL Cholesterol 33L, Cholesterol/HDL Ratio 3.4, Thyroid Stimulating Hormone (TSH) 2.057 02/18/19 16:55: Urine Color Pale yellow, Urine Appearance Clear, Urine pH 5, Urine Specific [place] 1.015, Urine Protein Negative, Urine Glucose (UA) Negative, Urine Ketones Negative, Urine Blood Negative, Urine Nitrite Negative, Urine Bilirubin Negative, Urine Urobilinogen Normal, Urine Leukocyte Esterase 1+H, Urine RBC 0- 2H, Urine WBC 2-4, Urine Squamous Epithelial Cells Occasional, Urine Bacteria None, Urine Eosinophils None seen, Urine Osmolality 429, Urine Random Sodium 79 Current Medications Medications (Trade) Dose Ordered Sig/Benjamin Route PRN Reason Start Time Stop Time Status Last Admin Dose Admin Acetaminophen (Tylenol) 650 mg Q4H PRN ORAL fever 02/17/19 16:00 03/19/19 15:59 Albuterol/ Ipratropium (Albuterol/ Ipratropium) 3 ml Q6HRT PRN HHN dyspnea 02/17/19 16:00 02/22/19 15:59 Clonidine HCl (Catapres Tab) 0.1 mg Q4H PRN ORAL For High Blood Pressure 02/17/19 16:00 03/19/19 15:59 Dextrose (Dextrose 50%) 25 ml Q30M PRN IV Hypoglycemia 02/17/19 16:15 03/19/19 16:05 Dextrose (Dextrose 50%) 50 ml Q30M PRN IV hypoglycemia 02/17/19 16:15 03/19/19 16:14 Dextrose/Sodium Chloride 1,000 ml @ 75 mls/hr [id number] IV 02/18/19 17:00 03/20/19 16:59 02/18/19 17:27 Docusate Sodium (Colace) 100 mg THREE TIMES A DAY ORAL 02/18/19 18:00 03/20/19 17:59 02/18/19 17:21 Heparin Sodium (Porcine) (Heparin 5000 units/ml) 5,000 units EVERY 12 HOURS SUBQ 02/17/19 21:00 03/19/19 20:59 02/18/19 21:46 Insulin Aspart (NovoLOG) BEFORE MEALS AND HS SUBQ 02/17/19 16:30 03/19/19 16:29 02/17/19 21:10 Morphine Sulfate (Morphine Sulfate) 1 mg Q4H PRN IVP For Pain 02/17/19 16:00 02/24/19 15:59 Ondansetron HCl (Zofran) 4 mg Q6H PRN IVP Nausea & Vomiting 02/17/19 16:00 03/19/19 15:59 Pantoprazole (Protonix) 40 mg EVERY 12 HOURS ORAL 02/18/19 21:00 03/20/19 20:59 02/18/19 21:43 Sodium Polystyrene Sulfonate (Kayexalate) 45 gm DAILY ORAL 02/18/19 09:00 02/21/19 08:59 02/18/19 09:06 Zolpidem Tartrate (Ambien) 5 mg HSPRN PRN ORAL Insomnia 02/17/19 16:00 02/24/19 15:59 Kristine Pedraza MD Feb 19, 2019 06:01
[2019-02-19 07:12] LABS: BASOPHILS % (AUTO) 1.2 % (0.0-2.0); EOSINOPHILS % (AUTO) 4.1 % (0.0-3.0); HEMATOCRIT 37.8 % (42.0-52.0); HEMOGLOBIN 11.6 G/DL (14.2-18.0); LYMPHOCYTES % (AUTO) 38.6 % (20.0-45.0); MEAN CORPUSCULAR VOLUME 84 FL (80-99); MONOCYTES % (AUTO) 5.1 % (1.0-10.0); NEUTROPHILS % (AUTO) 51.1 % (45.0-75.0); PLATELET COUNT 548 K/UL (150-450); RED BLOOD COUNT 4.47 M/UL (4.70-6.10); RED CELL DISTRIBUTION WIDTH 16.9 % (11.6-14.8); WHITE BLOOD COUNT 6.4 K/UL (4.8-10.8)
[2019-02-19 07:57] LABS: GAMMA GLUTAMYL TRANSPEPTIDASE 26 U/L (5-85)
[2019-02-19 07:59] LABS: ALANINE AMINOTRANSFERASE 15 U/L (12-78); ALBUMIN 2.7 G/DL (3.4-5.0); ALBUMIN/GLOBULIN RATIO 0.6 (1.0-2.7); ALKALINE PHOSPHATASE 45 U/L (46-116); ANION GAP 11 mmol/L (5-15); ASPARTATE AMINO TRANSFERASE 16 U/L (15-37); BILIRUBIN,TOTAL 0.2 MG/DL (0.2-1.0); BLOOD UREA NITROGEN 26 mg/dL (7-18); CALCIUM 8.8 MG/DL (8.5-10.1); CARBON DIOXIDE 21 MMOL/L (21-32); CHLORIDE 108 MMOL/L (98-107); CREATININE 1.5 MG/DL (0.55-1.30); FERRITIN 37 NG/ML (8-388); PHOSPHORUS 4.1 MG/DL (2.5-4.9); POTASSIUM 4.1 MMOL/L (3.5-5.1); SODIUM 140 MMOL/L (136-145)
[2019-02-19 08:00] VITALS: BP 139/64
[2019-02-19 08:03] LABS: % IRON SATURATION 17 % (15-50); IRON 42 ug/dL (50-175); TOTAL IRON BINDING CAPACITY 247 ug/dL (250-450)
[2019-02-19] MEDS: Sodium Polystyrene Sulfonate 15gm Powder ORAL SCH (09:00)
[2019-02-19] MEDS: Docusate 100mg cap ORAL SCH ×3 (09:18→17:25)
[2019-02-19] MEDS: Heparin 5000 units/ml inj SUBQ SCH ×2 (09:20→20:59)
[2019-02-19 12:00] VITALS: BP 139/64
--- NOTE | 2019-02-19 12:02 | Nephrology Progress Note ---
Assessment/Plan Problem List: (1) Hyperkalemia (2) ARF (acute renal failure) (3) History of hypertension (4) Gout Assessment New onset renal failure. Hyperkalemia. likely pre renal ( Dehydration) superimposed on Renal Hypertension. Diabetes type 2. Gout. Osteoarthritis. Gastroesophageal reflux disease. Plan Slow Hydrate Keep BP and BS in check avoid Nephrotoxics urine studies 2D echo monitor renal parameters per orders Subjective ROS Limited/Unobtainable: No Constitutional: Reports: malaise Objective Objective Last 24 Hour Vital Signs Date Time Temp Pulse Resp B/P (MAP) Pulse Ox O2 Delivery O2 Flow Rate FiO2 02/19/19 08:33 Room Air 02/19/19 08:00 97.9 85 22 139/64 (89) 99 02/19/19 07:54 93 02/19/19 04:00 97.5 66 18 141/76 (97) 98 02/19/19 04:00 59 02/19/19 00:00 69 02/19/19 00:00 98.0 75 18 144/68 (93) 96 02/18/19 21:00 Room Air 02/18/19 20:25 75 18 94 Room Air 21 02/18/19 20:00 98.2 75 18 137/72 (93) 96 02/18/19 20:00 80 02/18/19 16:00 98.7 77 20 135/70 (91) 95 02/18/19 16:00 63 Intake and Output 02/18/19 02/19/19 19:00 07:00 Intake Total 380 ml Balance 380 ml Intake Oral 140 ml Other 240 ml # Voids 4 2 Laboratory Tests 02/18/19 16:55: Urine Color Pale yellow, Urine Appearance Clear, Urine pH 5, Urine Specific [place] 1.015, Urine Protein Negative, Urine Glucose (UA) Negative, Urine Ketones Negative, Urine Blood Negative, Urine Nitrite Negative, Urine Bilirubin Negative, Urine Urobilinogen Normal, Urine Leukocyte Esterase 1+H, Urine RBC 0- 2H, Urine WBC 2-4, Urine Squamous Epithelial Cells Occasional, Urine Bacteria None, Urine Eosinophils None seen, Urine Osmolality 429, Urine Random Sodium 79 02/19/19 04:45: White Blood Count 6.4, Red Blood Count 4.47L, Hemoglobin 11.6L, Hematocrit 37.8L , Mean Corpuscular Volume 84, Mean Corpuscular Hemoglobin 26.0L, Mean Corpuscular Hemoglobin Concent 30.7L, Red Cell Distribution Width 16.9H, Platelet Count 548H, Mean Platelet Volume 6.2L, Neutrophils (%) (Auto) 51.1, Lymphocytes (%) (Auto) 38.6, Monocytes (%) (Auto) 5.1, Eosinophils (%) (Auto) 4.1H, Basophils (%) (Auto) 1.2, Sodium Level 140, Potassium Level 4.1, Chloride Level 108H, Carbon Dioxide Level 21, Anion Gap 11, Blood Urea Nitrogen 26H, Creatinine 1.5H, Estimat Glomerular Filtration Rate , Glucose Level 84, Uric Acid 6.7, Calcium Level 8.8, Phosphorus Level 4.1, Magnesium Level 2.0, Iron Level 42L, Total Iron Binding Capacity 247L, Percent Iron Saturation 17, Unsaturated Iron Binding 205, Ferritin 37, Total Bilirubin 0.2, Gamma Glutamyl Transpeptidase 26, Aspartate Amino Transf (AST/SGOT) 16, Alanine Aminotransferase (ALT/SGPT) 15, Alkaline Phosphatase 45L, C-Reactive Protein, Quantitative < 0.4, Pro-B-Type Natriuretic Peptide 90, Total Protein 7.2, Albumin 2.7L, Globulin 4.5, Albumin/Globulin Ratio 0.6L, Vitamin B12 Level 559, Folate 17.3, Thyroid Stimulating Hormone (TSH) 2.367 Height (Feet): 5 Height (Inches): 10.00 Weight (Pounds): 238 General Appearance: no apparent distress Cardiovascular: tachycardia Respiratory/Chest: decreased breath sounds Abdomen: distended Grady Vinson MD Feb 19, 2019 12:02
[2019-02-19 16:00] VITALS: BP 101/63
[2019-02-19] MEDS ORDERED: LORazepam 0.5mg tab ORAL PRN (17:30)
--- NOTE | 2019-02-19 17:39 | Internal Med Progress Note ---
Subjective Date of Service: Feb 19, 2019 Physician Name Braeden Barnes Attending Physician Pola Castellon MD Current Medications Medications (Trade) Dose Ordered Sig/Benjamin Route PRN Reason Start Time Stop Time Status Last Admin Dose Admin Acetaminophen (Tylenol) 650 mg Q4H PRN ORAL fever 02/17/19 16:00 03/19/19 15:59 Albuterol/ Ipratropium (Albuterol/ Ipratropium) 3 ml Q6HRT PRN HHN dyspnea 02/17/19 16:00 02/22/19 15:59 Clonidine HCl (Catapres Tab) 0.1 mg Q4H PRN ORAL For High Blood Pressure 02/17/19 16:00 03/19/19 15:59 Dextrose (Dextrose 50%) 25 ml Q30M PRN IV Hypoglycemia 02/17/19 16:15 03/19/19 16:05 Dextrose (Dextrose 50%) 50 ml Q30M PRN IV hypoglycemia 02/17/19 16:15 03/19/19 16:14 Dextrose/Sodium Chloride 1,000 ml @ 75 mls/hr [id number] IV 02/18/19 17:00 03/20/19 16:59 02/18/19 17:27 Docusate Sodium (Colace) 100 mg THREE TIMES A DAY ORAL 02/18/19 18:00 03/20/19 17:59 02/19/19 09:18 Heparin Sodium (Porcine) (Heparin 5000 units/ml) 5,000 units EVERY 12 HOURS SUBQ 02/17/19 21:00 03/19/19 20:59 02/19/19 09:20 Insulin Aspart (NovoLOG) BEFORE MEALS AND HS SUBQ 02/17/19 16:30 03/19/19 16:29 02/17/19 21:10 Lorazepam (Ativan) 2 mg Q6H PRN ORAL For Anxiety 02/19/19 17:30 02/26/19 17:29 Morphine Sulfate (Morphine Sulfate) 1 mg Q4H PRN IVP For Pain 02/17/19 16:00 02/24/19 15:59 Olanzapine (ZyPREXA) 5 mg BID ORAL 02/19/19 18:00 03/21/19 17:59 Ondansetron HCl (Zofran) 4 mg Q6H PRN IVP Nausea & Vomiting 02/17/19 16:00 03/19/19 15:59 Pantoprazole (Protonix) 40 mg EVERY 12 HOURS ORAL 02/18/19 21:00 03/20/19 20:59 02/19/19 09:18 Zolpidem Tartrate (Ambien) 5 mg HSPRN PRN ORAL Insomnia 02/17/19 16:00 02/24/19 15:59 Allergies: Coded Allergies: No Known Allergies (Unverified , 02/17/19) ROS Limited/Unobtainable: No Constitutional: Reports: no symptoms HEENT: Reports: no symptoms Cardiovascular: Reports: no symptoms Respiratory: Reports: no symptoms Gastrointestinal/Abdominal: Reports: no symptoms Genitourinary: Reports: no symptoms Neurologic/Psychiatric: Reports: no symptoms Subjective 78 YO M admitted with hyperkalemia. Now new onset renal failure. Cover for Int Darshan-Dr Castellon Objective Last Vital Signs Date Time Temp Pulse Resp B/P (MAP) Pulse Ox O2 Delivery O2 Flow Rate FiO2 02/19/19 16:00 98.4 94 20 101/63 (76) 97 02/19/19 15:17 Room Air 21 Laboratory Tests Test 02/19/19 04:45 White Blood Count 6.4 K/UL (4.8-10.8) Red Blood Count 4.47 M/UL (4.70-6.10) L Hemoglobin 11.6 G/DL (14.2-18.0) L Hematocrit 37.8 % (42.0-52.0) L Mean Corpuscular Volume 84 FL (80-99) Mean Corpuscular Hemoglobin 26.0 PG (27.0-31.0) L Mean Corpuscular Hemoglobin Concent 30.7 G/DL (32.0-36.0) L Red Cell Distribution Width 16.9 % (11.6-14.8) H Platelet Count 548 K/UL (150-450) H Mean Platelet Volume 6.2 FL (6.5-10.1) L Neutrophils (%) (Auto) 51.1 % (45.0-75.0) Lymphocytes (%) (Auto) 38.6 % (20.0-45.0) Monocytes (%) (Auto) 5.1 % (1.0-10.0) Eosinophils (%) (Auto) 4.1 % (0.0-3.0) H Basophils (%) (Auto) 1.2 % (0.0-2.0) Sodium Level 140 MMOL/L (136-145) Potassium Level 4.1 MMOL/L (3.5-5.1) Chloride Level 108 MMOL/L (98-107) H Carbon Dioxide Level 21 MMOL/L (21-32) Anion Gap 11 mmol/L (5-15) Blood Urea Nitrogen 26 mg/dL (7-18) H Creatinine 1.5 MG/DL (0.55-1.30) H Estimat Glomerular Filtration Rate mL/min (>60) Glucose Level 84 MG/DL (74-106) Uric Acid 6.7 MG/DL (2.6-7.2) Calcium Level 8.8 MG/DL (8.5-10.1) Phosphorus Level 4.1 MG/DL (2.5-4.9) Magnesium Level 2.0 MG/DL (1.8-2.4) Iron Level 42 ug/dL (50-175) L Total Iron Binding Capacity 247 ug/dL (250-450) L Percent Iron Saturation 17 % (15-50) Unsaturated Iron Binding 205 ug/dL (112-346) Ferritin 37 NG/ML (8-388) Total Bilirubin 0.2 MG/DL (0.2-1.0) Gamma Glutamyl Transpeptidase 26 U/L (5-85) Aspartate Amino Transf (AST/SGOT) 16 U/L (15-37) Alanine Aminotransferase (ALT/SGPT) 15 U/L (12-78) Alkaline Phosphatase 45 U/L (46-116) L C-Reactive Protein, Quantitative < 0.4 mg/dL (0.00-0.90) Pro-B-Type Natriuretic Peptide 90 pg/mL (0-125) Total Protein 7.2 G/DL (6.4-8.2) Albumin 2.7 G/DL (3.4-5.0) L Globulin 4.5 g/dL Albumin/Globulin Ratio 0.6 (1.0-2.7) L Vitamin B12 Level 559 PG/ML (193-986) Folate 17.3 NG/ML (8.6-58.9) Thyroid Stimulating Hormone (TSH) 2.367 uiU/mL (0.358-3.740) Microbiology Date/Time Source Procedure Growth Status 6/6/19 16:10 Nasal Nares MRSA Culture - Final NO METHICILLIN RESISTANT STAPH AUREUS... Complete 02/17/19 13:50 Urine,Clean Catch Urine Culture - Final Proteus Mirabilis Complete 02/17/19 16:10 Rectum VRE Culture - Final NO VANCOMYCIN RESISTANT ENTEROCOCCUS ... Complete 02/17/19 16:10 Rectum - Final NO CARBAPENEM-RESISTANT ENTEROBACTERI... Complete Intake and Output 02/18/19 02/19/19 19:00 07:00 Intake Total 380 ml Balance 380 ml Intake Oral 140 ml Other 240 ml # Voids 4 2 Objective PHYSICAL EXAMINATION: GENERAL: The patient is a well-developed and well-nourished male, in no apparent distress. HEENT: Eyes, pupils are equal and responsive to light and accommodation. Extraocular movements are intact. NECK: Supple without lymphadenopathy. CHEST: Lungs are clear to auscultation bilaterally without wheezes or rales. CARDIOVASCULAR: Regular rhythm and rate. S1, S2 are normal without murmurs, rubs, or gallops. ABDOMEN: Soft, nontender, and nondistended. Positive bowel sounds. No evidence of hepatosplenomegaly. Currently, no rebound or guarding noted. EXTREMITY: Negative for clubbing, cyanosis, or edema. RECTAL/GENITAL: Refused. NEUROLOGIC: Cranial nerves II through XII are grossly intact without focal deficits. Motor strength is 5/5 bilaterally. Deep tendon reflexes are 2+ plantar. Assessment/Plan Assessment/Plan ASSESSMENT: This is a 78-year-old male. 1. Hyperkalemia. 2. New onset renal failure. 3. Hypertension. 4. Diabetes type 2. 5. Gout. 6. Osteoarthritis. 7. Gastroesophageal reflux disease. 8. Osteoarthritis. 9. Generalized weakness. TREATMENT: 1. Hyperkalemia/renal failure. The patient has received Kayexalate. A Nephrology consultation has been obtained with Dr. Vinson. Hyperkalemia may be secondary to renal failure. We will follow recommendations of Nephrology. 2. Hypertension. The patient is currently hypotensive. 3. Diabetes type 2. A NovoLog sliding scale has been instituted. 4. Gout. Continue allopurinol as above. 5. Osteoarthritis. 6. Gastroesophageal reflux disease. Continue ranitidine as above. 7. Osteoarthritis. Braeden Barnes MD Feb 19, 2019 17:39
[2019-02-19 20:00] VITALS: BP 111/76
[2019-02-19] MEDS ORDERED: LORazepam 1mg tab ORAL PRN (23:30)
[2019-02-20] VITALS: BP 136/66
[2019-02-20] MEDS ORDERED: Albuterol/Ipratropium 3ml neb HHN PRN (01:00)
[2019-02-20 04:00] VITALS: BP 168/76
[2019-02-20] MEDS: NovoLOG Insulin Flexpen SUBQ SCH ×4 (06:12→20:35)
[2019-02-20 07:25] LABS: ALANINE AMINOTRANSFERASE 14 U/L (12-78); ALBUMIN 2.6 G/DL (3.4-5.0); ALBUMIN/GLOBULIN RATIO 0.6 (1.0-2.7); ALKALINE PHOSPHATASE 42 U/L (46-116); ANION GAP 8 mmol/L (5-15); ASPARTATE AMINO TRANSFERASE 13 U/L (15-37); BASOPHILS % (AUTO) 1.7 % (0.0-2.0); BILIRUBIN,TOTAL 0.2 MG/DL (0.2-1.0); BLOOD UREA NITROGEN 22 mg/dL (7-18); CALCIUM 8.9 MG/DL (8.5-10.1); CARBON DIOXIDE 23 MMOL/L (21-32); CHLORIDE 111 MMOL/L (98-107); CREATININE 1.5 MG/DL (0.55-1.30); EOSINOPHILS % (AUTO) 3.7 % (0.0-3.0); HEMATOCRIT 35.4 % (42.0-52.0); HEMOGLOBIN 10.9 G/DL (14.2-18.0); LYMPHOCYTES % (AUTO) 39.8 % (20.0-45.0); MEAN CORPUSCULAR VOLUME 85 FL (80-99); MONOCYTES % (AUTO) 10.1 % (1.0-10.0); NEUTROPHILS % (AUTO) 44.7 % (45.0-75.0); PHOSPHORUS 3.6 MG/DL (2.5-4.9); PLATELET COUNT 527 K/UL (150-450); POTASSIUM 4.1 MMOL/L (3.5-5.1); RED BLOOD COUNT 4.17 M/UL (4.70-6.10); RED CELL DISTRIBUTION WIDTH 17.1 % (11.6-14.8); SODIUM 142 MMOL/L (136-145); WHITE BLOOD COUNT 6.7 K/UL (4.8-10.8)
[2019-02-20 08:00] VITALS: BP 119/47
[2019-02-20] MEDS: Heparin 5000 units/ml inj SUBQ SCH ×2 (08:26→20:30)
[2019-02-20] MEDS: Docusate 100mg cap ORAL SCH ×3 (08:28→18:00)
[2019-02-20] MEDS ORDERED: D5 1/2NS 1000ml IV ONE (08:50)
[2019-02-20] MEDS: Morphine Sulfate 2mg/ml Inj(IV/IM USE ONLY) IVP PRN (10:52)
[2019-02-20 12:00] VITALS: BP 156/77
[2019-02-20] MEDS: D5 1/2NS 1,000 ML IV SCH (12:21)
--- NOTE | 2019-02-20 14:31 | Nephrology Progress Note ---
Assessment/Plan Problem List: (1) Hyperkalemia (2) ARF (acute renal failure) (3) History of hypertension (4) Gout Assessment New onset renal failure. Hyperkalemia. likely pre renal ( Dehydration) superimposed on Renal Hypertension. Diabetes type 2. Gout. Osteoarthritis. Gastroesophageal reflux disease. Plan Slow Hydrate Keep BP and BS in check avoid Nephrotoxics urine studies 2D echo Left ventricular ejection fraction estimated to be 55 %. monitor renal parameters per orders BOYD Kidney Both kidneys demonstrate normal echogenicity. No hydronephrosis. Right kidney demonstrates a 4.6 cm upper pole cyst and other smaller cysts. Negative for hydronephrosis Subjective ROS Limited/Unobtainable: No Objective Objective Last 24 Hour Vital Signs Date Time Temp Pulse Resp B/P (MAP) Pulse Ox O2 Delivery O2 Flow Rate FiO2 02/20/19 12:00 97.3 80 21 156/77 (103) 97 02/20/19 08:47 79 18 95 Room Air 21 02/20/19 08:00 98.6 99 21 119/47 (71) 100 02/20/19 07:42 Room Air 02/20/19 04:01 168/76 02/20/19 04:00 97.9 76 18 168/76 (106) 100 02/20/19 00:00 98.0 60 18 136/66 (89) 98 02/19/19 22:40 88 18 98 Room Air 21 02/19/19 21:00 Room Air 02/19/19 20:00 96.9 88 18 111/76 (88) 98 02/19/19 16:00 98.4 94 20 101/63 (76) 97 02/19/19 15:17 77 16 97 Room Air 21 Intake and Output 02/19/19 02/20/19 19:00 07:00 Intake Total 640 ml 607.5 ml Balance 640 ml 607.5 ml Intake Oral 640 ml 120 ml IV Total 487.5 ml # Voids 2 # Bowel Movements 2 1 Laboratory Tests 02/19/19 19:20: Urine Random Creatinine [Pending], Urine Random Microalbumin [Pending], Urine Microalbumin/Creatinine Ratio [Pending] 02/20/19 05:20: White Blood Count 6.7, Red Blood Count 4.17L, Hemoglobin 10.9L, Hematocrit 35.4L , Mean Corpuscular Volume 85, Mean Corpuscular Hemoglobin 26.1L, Mean Corpuscular Hemoglobin Concent 30.7L, Red Cell Distribution Width 17.1H, Platelet Count 527H, Mean Platelet Volume 6.3L, Neutrophils (%) (Auto) 44.7L, Lymphocytes (%) (Auto) 39.8, Monocytes (%) (Auto) 10.1H, Eosinophils (%) (Auto) 3.7H, Basophils (%) (Auto) 1.7, Erythrocyte Sedimentation Rate 47H, Sodium Level 142, Potassium Level 4.1, Chloride Level 111H, Carbon Dioxide Level 23, Anion Gap 8, Blood Urea Nitrogen 22H, Creatinine 1.5H, Estimat Glomerular Filtration Rate , Glucose Level 98, Calcium Level 8.9, Phosphorus Level 3.6, Magnesium Level 1.7L, Total Bilirubin 0.2, Aspartate Amino Transf (AST/SGOT) 13L , Alanine Aminotransferase (ALT/SGPT) 14, Alkaline Phosphatase 42L, C-Reactive Protein, Quantitative < 0.4, Total Protein 6.8, Albumin 2.6L, Globulin 4.2, Albumin/Globulin Ratio 0.6L Height (Feet): 5 Height (Inches): 10.00 Weight (Pounds): 238 General Appearance: no apparent distress Objective no change Grady Vinson MD Feb 20, 2019 14:31
--- NOTE | 2019-02-20 14:44 | Pulmonology Progress Note ---
Assessment/Plan Problems: (1) ATN (acute tubular necrosis) (2) ARF (acute renal failure) (3) Hyperkalemia (4) Peripheral edema (5) Diabetes mellitus (6) History of hypertension (7) Gout Assessment/Plan d/w at the bed site improving continue iv fluid renal US noted: Both kidneys demonstrate normal echogenicity echo reviewed Optimize cardiac meds med/surg pt/ot dvt prophylaxis dc planning Subjective ROS Limited/Unobtainable: No Constitutional: Reports: no symptoms HEENT: Repors: no symptoms Respiratory: Reports: no symptoms Allergies: Coded Allergies: No Known Allergies (Unverified , 02/17/19) Objective Last 24 Hour Vital Signs Date Time Temp Pulse Resp B/P (MAP) Pulse Ox O2 Delivery O2 Flow Rate FiO2 02/20/19 12:00 97.3 80 21 156/77 (103) 97 02/20/19 08:47 79 18 95 Room Air 21 02/20/19 08:00 98.6 99 21 119/47 (71) 100 02/20/19 07:42 Room Air 02/20/19 04:01 168/76 02/20/19 04:00 97.9 76 18 168/76 (106) 100 02/20/19 00:00 98.0 60 18 136/66 (89) 98 02/19/19 22:40 88 18 98 Room Air 21 02/19/19 21:00 Room Air 02/19/19 20:00 96.9 88 18 111/76 (88) 98 02/19/19 16:00 98.4 94 20 101/63 (76) 97 02/19/19 15:17 77 16 97 Room Air 21 Intake and Output 02/19/19 02/20/19 19:00 07:00 Intake Total 640 ml 607.5 ml Balance 640 ml 607.5 ml Intake Oral 640 ml 120 ml IV Total 487.5 ml # Voids 2 # Bowel Movements 2 1 General Appearance: WD/WN HEENT: normocephalic Respiratory/Chest: lungs clear Cardiovascular: normal peripheral pulses, normal rate, regular rhythm Abdomen: normal bowel sounds, soft, non tender Genitourinary: normal external genitalia Neurologic/Psychiatric: eviction specialist II-XII grossly normal, no motor/sensory deficits Microbiology Date/Time Source Procedure Growth Status 02/17/19 16:10 Nasal Nares MRSA Culture - Final NO METHICILLIN RESISTANT STAPH AUREUS... Complete 02/19/19 18:00 Stool Clostridium difficile Toxin Assay - Final Complete 02/17/19 16:10 Rectum VRE Culture - Final NO VANCOMYCIN RESISTANT ENTEROCOCCUS ... Complete 02/17/19 16:10 Rectum - Final NO CARBAPENEM-RESISTANT ENTEROBACTERI... Complete Laboratory Tests 02/19/19 19:20: Urine Random Creatinine [Pending], Urine Random Microalbumin [Pending], Urine Microalbumin/Creatinine Ratio [Pending] 02/20/19 05:20: White Blood Count 6.7, Red Blood Count 4.17L, Hemoglobin 10.9L, Hematocrit 35.4L , Mean Corpuscular Volume 85, Mean Corpuscular Hemoglobin 26.1L, Mean Corpuscular Hemoglobin Concent 30.7L, Red Cell Distribution Width 17.1H, Platelet Count 527H, Mean Platelet Volume 6.3L, Neutrophils (%) (Auto) 44.7L, Lymphocytes (%) (Auto) 39.8, Monocytes (%) (Auto) 10.1H, Eosinophils (%) (Auto) 3.7H, Basophils (%) (Auto) 1.7, Erythrocyte Sedimentation Rate 47H, Sodium Level 142, Potassium Level 4.1, Chloride Level 111H, Carbon Dioxide Level 23, Anion Gap 8, Blood Urea Nitrogen 22H, Creatinine 1.5H, Estimat Glomerular Filtration Rate , Glucose Level 98, Calcium Level 8.9, Phosphorus Level 3.6, Magnesium Level 1.7L, Total Bilirubin 0.2, Aspartate Amino Transf (AST/SGOT) 13L , Alanine Aminotransferase (ALT/SGPT) 14, Alkaline Phosphatase 42L, C-Reactive Protein, Quantitative < 0.4, Total Protein 6.8, Albumin 2.6L, Globulin 4.2, Albumin/Globulin Ratio 0.6L Current Medications Medications (Trade) Dose Ordered Sig/Benjamin Route PRN Reason Start Time Stop Time Status Last Admin Dose Admin Acetaminophen (Tylenol) 650 mg Q4H PRN ORAL fever 02/20/19 00:00 03/19/19 15:59 Albuterol/ Ipratropium (Albuterol/ Ipratropium) 3 ml Q6HRT PRN HHN dyspnea 02/20/19 01:00 02/22/19 15:59 Clonidine HCl (Catapres Tab) 0.1 mg Q4H PRN ORAL For High Blood Pressure 02/20/19 00:00 03/19/19 15:59 02/20/19 04:01 Dextrose (Dextrose 50%) 25 ml Q30M PRN IV Hypoglycemia 02/19/19 22:45 03/19/19 16:05 Dextrose (Dextrose 50%) 50 ml Q30M PRN IV hypoglycemia 02/19/19 22:45 03/19/19 16:14 Dextrose/Sodium Chloride 1,000 ml @ 75 mls/hr [id number] IV 02/19/19 22:45 03/20/19 16:59 02/20/19 12:21 Docusate Sodium (Colace) 100 mg THREE TIMES A DAY ORAL 02/20/19 09:00 03/20/19 17:59 Heparin Sodium (Porcine) (Heparin 5000 units/ml) 5,000 units EVERY 12 HOURS SUBQ 02/20/19 09:00 03/19/19 20:59 02/20/19 08:26 Insulin Aspart (NovoLOG) BEFORE MEALS AND HS SUBQ 02/20/19 06:30 03/19/19 16:29 Lorazepam (Ativan) 2 mg Q6H PRN ORAL For Anxiety 02/19/19 23:30 02/26/19 17:29 Magnesium Sulfate 100 ml @ 100 mls/hr Q1H IVPB 02/20/19 13:30 02/20/19 15:29 02/20/19 13:25 Morphine Sulfate (Morphine Sulfate) 1 mg Q4H PRN IVP For Pain 02/20/19 00:00 02/24/19 15:59 02/20/19 10:52 Ondansetron HCl (Zofran) 4 mg Q6H PRN IVP Nausea & Vomiting 02/20/19 04:00 03/19/19 15:59 Pantoprazole (Protonix) 40 mg EVERY 12 HOURS ORAL 02/20/19 09:00 03/20/19 20:59 02/20/19 08:25 Zolpidem Tartrate (Ambien) 5 mg HSPRN PRN ORAL Insomnia 02/20/19 16:00 02/24/19 15:59 Kristine Pedraza MD Feb 20, 2019 14:44
[2019-02-20] MEDS ORDERED: Zolpidem 5mg tab ORAL PRN (16:00)
--- NOTE | 2019-02-20 16:02 | Internal Med Progress Note ---
Subjective Date of Service: Feb 20, 2019 Physician Name Braeden Barnes Attending Physician Pola Castellon MD Current Medications Medications (Trade) Dose Ordered Sig/Benjamin Route PRN Reason Start Time Stop Time Status Last Admin Dose Admin Acetaminophen (Tylenol) 650 mg Q4H PRN ORAL fever 02/20/19 00:00 03/19/19 15:59 Albuterol/ Ipratropium (Albuterol/ Ipratropium) 3 ml Q6HRT PRN HHN dyspnea 02/20/19 01:00 02/22/19 15:59 Clonidine HCl (Catapres Tab) 0.1 mg Q4H PRN ORAL For High Blood Pressure 02/20/19 00:00 03/19/19 15:59 02/20/19 04:01 Dextrose (Dextrose 50%) 25 ml Q30M PRN IV Hypoglycemia 02/19/19 22:45 03/19/19 16:05 Dextrose (Dextrose 50%) 50 ml Q30M PRN IV hypoglycemia 02/19/19 22:45 03/19/19 16:14 Docusate Sodium (Colace) 100 mg THREE TIMES A DAY ORAL 02/20/19 09:00 03/20/19 17:59 Heparin Sodium (Porcine) (Heparin 5000 units/ml) 5,000 units EVERY 12 HOURS SUBQ 02/20/19 09:00 03/19/19 20:59 02/20/19 08:26 Insulin Aspart (NovoLOG) BEFORE MEALS AND HS SUBQ 02/20/19 06:30 03/19/19 16:29 Lorazepam (Ativan) 2 mg Q6H PRN ORAL For Anxiety 02/19/19 23:30 02/26/19 17:29 Morphine Sulfate (Morphine Sulfate) 1 mg Q4H PRN IVP For Pain 02/20/19 00:00 02/24/19 15:59 02/20/19 10:52 Ondansetron HCl (Zofran) 4 mg Q6H PRN IVP Nausea & Vomiting 02/20/19 04:00 03/19/19 15:59 Pantoprazole (Protonix) 40 mg EVERY 12 HOURS ORAL 02/20/19 09:00 03/20/19 20:59 02/20/19 08:25 Zolpidem Tartrate (Ambien) 5 mg HSPRN PRN ORAL Insomnia 02/20/19 16:00 02/24/19 15:59 Allergies: Coded Allergies: No Known Allergies (Unverified , 02/17/19) ROS Limited/Unobtainable: No Constitutional: Reports: no symptoms HEENT: Reports: no symptoms Cardiovascular: Reports: no symptoms Respiratory: Reports: no symptoms Gastrointestinal/Abdominal: Reports: no symptoms Genitourinary: Reports: no symptoms Neurologic/Psychiatric: Reports: no symptoms Subjective 78 YO M admitted with hyperkalemia. Now new onset renal failure. Cover for Int Darshan-Dr Castellon Objective Last Vital Signs Date Time Temp Pulse Resp B/P (MAP) Pulse Ox O2 Delivery O2 Flow Rate FiO2 02/20/19 12:00 97.3 80 21 156/77 (103) 97 02/20/19 08:47 Room Air 21 Laboratory Tests Test 02/19/19 19:20 02/20/19 05:20 Urine Random Creatinine Pending Urine Random Microalbumin Pending Urine Microalbumin/Creatinine Ratio Pending White Blood Count 6.7 K/UL (4.8-10.8) Red Blood Count 4.17 M/UL (4.70-6.10) L Hemoglobin 10.9 G/DL (14.2-18.0) L Hematocrit 35.4 % (42.0-52.0) L Mean Corpuscular Volume 85 FL (80-99) Mean Corpuscular Hemoglobin 26.1 PG (27.0-31.0) L Mean Corpuscular Hemoglobin Concent 30.7 G/DL (32.0-36.0) L Red Cell Distribution Width 17.1 % (11.6-14.8) H Platelet Count 527 K/UL (150-450) H Mean Platelet Volume 6.3 FL (6.5-10.1) L Neutrophils (%) (Auto) 44.7 % (45.0-75.0) L Lymphocytes (%) (Auto) 39.8 % (20.0-45.0) Monocytes (%) (Auto) 10.1 % (1.0-10.0) H Eosinophils (%) (Auto) 3.7 % (0.0-3.0) H Basophils (%) (Auto) 1.7 % (0.0-2.0) Erythrocyte Sedimentation Rate 47 MM/HR (0-20) H Sodium Level 142 MMOL/L (136-145) Potassium Level 4.1 MMOL/L (3.5-5.1) Chloride Level 111 MMOL/L (98-107) H Carbon Dioxide Level 23 MMOL/L (21-32) Anion Gap 8 mmol/L (5-15) Blood Urea Nitrogen 22 mg/dL (7-18) H Creatinine 1.5 MG/DL (0.55-1.30) H Estimat Glomerular Filtration Rate mL/min (>60) Glucose Level 98 MG/DL (74-106) Calcium Level 8.9 MG/DL (8.5-10.1) Phosphorus Level 3.6 MG/DL (2.5-4.9) Magnesium Level 1.7 MG/DL (1.8-2.4) L Total Bilirubin 0.2 MG/DL (0.2-1.0) Aspartate Amino Transf (AST/SGOT) 13 U/L (15-37) L Alanine Aminotransferase (ALT/SGPT) 14 U/L (12-78) Alkaline Phosphatase 42 U/L (46-116) L C-Reactive Protein, Quantitative < 0.4 mg/dL (0.00-0.90) Total Protein 6.8 G/DL (6.4-8.2) Albumin 2.6 G/DL (3.4-5.0) L Globulin 4.2 g/dL Albumin/Globulin Ratio 0.6 (1.0-2.7) L Microbiology Date/Time Source Procedure Growth Status 02/17/19 16:10 Nasal Nares MRSA Culture - Final NO METHICILLIN RESISTANT STAPH AUREUS... Complete 02/19/19 18:00 Stool Clostridium difficile Toxin Assay - Final Complete 02/17/19 16:10 Rectum VRE Culture - Final NO VANCOMYCIN RESISTANT ENTEROCOCCUS ... Complete 02/17/19 16:10 Rectum - Final NO CARBAPENEM-RESISTANT ENTEROBACTERI... Complete Intake and Output 02/19/19 02/20/19 19:00 07:00 Intake Total 640 ml 607.5 ml Balance 640 ml 607.5 ml Intake Oral 640 ml 120 ml IV Total 487.5 ml # Voids 2 # Bowel Movements 2 1 Objective PHYSICAL EXAMINATION: GENERAL: The patient is a well-developed and well-nourished male, in no apparent distress. HEENT: Eyes, pupils are equal and responsive to light and accommodation. Extraocular movements are intact. NECK: Supple without lymphadenopathy. CHEST: Lungs are clear to auscultation bilaterally without wheezes or rales. CARDIOVASCULAR: Regular rhythm and rate. S1, S2 are normal without murmurs, rubs, or gallops. ABDOMEN: Soft, nontender, and nondistended. Positive bowel sounds. No evidence of hepatosplenomegaly. Currently, no rebound or guarding noted. EXTREMITY: Negative for clubbing, cyanosis, or edema. RECTAL/GENITAL: Refused. NEUROLOGIC: Cranial nerves II through XII are grossly intact without focal deficits. Motor strength is 5/5 bilaterally. Deep tendon reflexes are 2+ plantar. Assessment/Plan Assessment/Plan ASSESSMENT: This is a 78-year-old male. 1. Hyperkalemia. 2. New onset renal failure. 3. Hypertension. 4. Diabetes type 2. 5. Gout. 6. Osteoarthritis. 7. Gastroesophageal reflux disease. 8. Osteoarthritis. 9. Generalized weakness. TREATMENT: 1. Hyperkalemia/renal failure. Resolved with Kayexalate. A Nephrology consultation has been obtained with Dr. Vinson. Hyperkalemia may be secondary to renal failure. We will follow recommendations of Nephrology. 2. Hypertension. The patient is currently hypotensive. 3. Diabetes type 2. A NovoLog sliding scale has been instituted. 4. Gout. Continue allopurinol as above. 5. Osteoarthritis. 6. Gastroesophageal reflux disease. Continue ranitidine as above. 7. Osteoarthritis. Braeden Barnes MD Feb 20, 2019 16:02
[2019-02-20 16:13] VITALS: BP 133/70
[2019-02-20 20:00] VITALS: BP 160/78
[2019-02-21 04:00] VITALS: BP 134/62
[2019-02-21] MEDS: NovoLOG Insulin Flexpen SUBQ SCH ×4 (05:37→20:36)
[2019-02-21] MEDS: Morphine Sulfate 2mg/ml Inj(IV/IM USE ONLY) IVP PRN ×2 (06:21→20:21)
[2019-02-21 07:00] LABS: BASOPHILS % (AUTO) 1.5 % (0.0-2.0); EOSINOPHILS % (AUTO) 3.9 % (0.0-3.0); HEMOGLOBIN 10.9 G/DL (14.2-18.0); LYMPHOCYTES % (AUTO) 38.8 % (20.0-45.0); MEAN CORPUSCULAR VOLUME 85 FL (80-99); MONOCYTES % (AUTO) 9.5 % (1.0-10.0); NEUTROPHILS % (AUTO) 46.2 % (45.0-75.0); PLATELET COUNT 509 K/UL (150-450); RED BLOOD COUNT 4.12 M/UL (4.70-6.10); WHITE BLOOD COUNT 7.9 K/UL (4.8-10.8)
[2019-02-21 07:20] LABS: ALANINE AMINOTRANSFERASE 17 U/L (12-78); ALBUMIN 2.5 G/DL (3.4-5.0); ALBUMIN/GLOBULIN RATIO 0.6 (1.0-2.7); ALKALINE PHOSPHATASE 43 U/L (46-116); ANION GAP 8 mmol/L (5-15); ASPARTATE AMINO TRANSFERASE 15 U/L (15-37); BILIRUBIN,TOTAL 0.2 MG/DL (0.2-1.0); BLOOD UREA NITROGEN 20 mg/dL (7-18); CALCIUM 8.5 MG/DL (8.5-10.1); CARBON DIOXIDE 22 MMOL/L (21-32); CHLORIDE 110 MMOL/L (98-107); CREATININE 1.4 MG/DL (0.55-1.30); PHOSPHORUS 4.3 MG/DL (2.5-4.9); POTASSIUM 4.4 MMOL/L (3.5-5.1); SODIUM 140 MMOL/L (136-145)
[2019-02-21 08:00] VITALS: BP 160/70
[2019-02-21] MEDS: Docusate 100mg cap ORAL SCH ×3 (09:19→16:49)
[2019-02-21] MEDS: Heparin 5000 units/ml inj SUBQ SCH ×2 (09:20→20:22)
[2019-02-21 12:00] VITALS: BP 167/77
--- NOTE | 2019-02-21 12:00 | Nephrology Progress Note ---
Assessment/Plan Problem List: (1) Hyperkalemia (2) ARF (acute renal failure) (3) History of hypertension (4) Gout Assessment New onset renal failure. Hyperkalemia. likely pre renal ( Dehydration) superimposed on Renal Hypertension. Diabetes type 2. Gout. Osteoarthritis. Gastroesophageal reflux disease. Plan Slow Hydrate Keep BP and BS in check avoid Nephrotoxics urine studies 2D echo Left ventricular ejection fraction estimated to be 55 %. monitor renal parameters per orders BOYD Kidney Both kidneys demonstrate normal echogenicity. No hydronephrosis. Right kidney demonstrates a 4.6 cm upper pole cyst and other smaller cysts. Negative for hydronephrosis Subjective ROS Limited/Unobtainable: No Constitutional: Reports: malaise Objective Objective Last 24 Hour Vital Signs Date Time Temp Pulse Resp B/P (MAP) Pulse Ox O2 Delivery O2 Flow Rate FiO2 02/21/19 09:00 Room Air 02/21/19 08:00 98.2 160/70 (100) 02/21/19 07:18 64 16 96 Room Air 21 02/21/19 04:00 97.9 84 18 134/62 (86) 98 02/20/19 21:00 Room Air 02/20/19 20:00 97.9 86 18 160/78 (105) 100 02/20/19 19:22 72 18 97 Room Air 21 02/20/19 16:13 98.7 69 20 133/70 (91) Intake and Output 02/20/19 02/21/19 18:59 06:59 Intake Total 865 ml 450 ml Balance 865 ml 450 ml Intake Oral 640 ml 450 ml IV Total 225 ml # Voids 3 2 # Bowel Movements 2 1 Laboratory Tests 02/21/19 06:12: White Blood Count 7.9, Red Blood Count 4.12L, Hemoglobin 10.9L, Hematocrit 35.0L , Mean Corpuscular Volume 85, Mean Corpuscular Hemoglobin 26.4L, Mean Corpuscular Hemoglobin Concent 31.0L, Red Cell Distribution Width 17.0H, Platelet Count 509H, Mean Platelet Volume 6.4L, Neutrophils (%) (Auto) 46.2, Lymphocytes (%) (Auto) 38.8, Monocytes (%) (Auto) 9.5, Eosinophils (%) (Auto) 3.9H, Basophils (%) (Auto) 1.5, Erythrocyte Sedimentation Rate 37H, Sodium Level 140, Potassium Level 4.4, Chloride Level 110H, Carbon Dioxide Level 22, Anion Gap 8, Blood Urea Nitrogen 20H, Creatinine 1.4H, Estimat Glomerular Filtration Rate , Glucose Level 91, Calcium Level 8.5, Phosphorus Level 4.3, Magnesium Level 1.6L, Total Bilirubin 0.2, Aspartate Amino Transf (AST/SGOT) 15 , Alanine Aminotransferase (ALT/SGPT) 17, Alkaline Phosphatase 43L, C-Reactive Protein, Quantitative < 0.4, Total Protein 6.7, Albumin 2.5L, Globulin 4.2, Albumin/Globulin Ratio 0.6L Height (Feet): 5 Height (Inches): 10.00 Weight (Pounds): 238 General Appearance: no apparent distress Objective no change Grady Vinson MD Feb 21, 2019 12:00
[2019-02-21] MEDS ORDERED: CLONIDINE0.1 MG ORAL (12:15)
[2019-02-21] MEDS ORDERED: NOVOLOG100 UNITS1 SUBQ (12:15)
--- NOTE | 2019-02-21 12:17 | Pulmonology Progress Note ---
Assessment/Plan Problems: (1) ATN (acute tubular necrosis) (2) ARF (acute renal failure) (3) Hyperkalemia (4) Peripheral edema (5) Diabetes mellitus (6) History of hypertension (7) Gout Assessment/Plan no new complains all reviewed improving renal US noted: Both kidneys demonstrate normal echogenicity echo reviewed [facility] cardiac meds med/surg pt/ot dvt prophylaxis dc planning Subjective ROS Limited/Unobtainable: No Constitutional: Reports: no symptoms HEENT: Repors: no symptoms Respiratory: Reports: no symptoms Allergies: Coded Allergies: No Known Allergies (Unverified , 02/17/19) Objective Last 24 Hour Vital Signs Date Time Temp Pulse Resp B/P (MAP) Pulse Ox O2 Delivery O2 Flow Rate FiO2 02/21/19 09:00 Room Air 02/21/19 08:00 98.2 160/70 (100) 02/21/19 07:18 64 16 96 Room Air 21 02/21/19 04:00 97.9 84 18 134/62 (86) 98 02/20/19 21:00 Room Air 02/20/19 20:00 97.9 86 18 160/78 (105) 100 02/20/19 19:22 72 18 97 Room Air 21 02/20/19 16:13 98.7 69 20 133/70 (91) Intake and Output 02/20/19 02/21/19 18:59 06:59 Intake Total 865 ml 450 ml Balance 865 ml 450 ml Intake Oral 640 ml 450 ml IV Total 225 ml # Voids 3 2 # Bowel Movements 2 1 General Appearance: WD/WN HEENT: normocephalic, atraumatic Respiratory/Chest: chest wall non-tender, lungs clear Cardiovascular: normal peripheral pulses, normal rate Abdomen: normal bowel sounds, soft, non tender Genitourinary: normal external genitalia Extremities: no cyanosis Neurologic/Psychiatric: grounds keeper II-XII grossly normal Lymphatic: no neck adenopathy Microbiology Date/Time Source Procedure Growth Status 02/19/19 18:00 Stool Clostridium difficile Toxin Assay - Final Complete Laboratory Tests 02/21/19 06:12: White Blood Count 7.9, Red Blood Count 4.12L, Hemoglobin 10.9L, Hematocrit 35.0L , Mean Corpuscular Volume 85, Mean Corpuscular Hemoglobin 26.4L, Mean Corpuscular Hemoglobin Concent 31.0L, Red Cell Distribution Width 17.0H, Platelet Count 509H, Mean Platelet Volume 6.4L, Neutrophils (%) (Auto) 46.2, Lymphocytes (%) (Auto) 38.8, Monocytes (%) (Auto) 9.5, Eosinophils (%) (Auto) 3.9H, Basophils (%) (Auto) 1.5, Erythrocyte Sedimentation Rate 37H, Sodium Level 140, Potassium Level 4.4, Chloride Level 110H, Carbon Dioxide Level 22, Anion Gap 8, Blood Urea Nitrogen 20H, Creatinine 1.4H, Estimat Glomerular Filtration Rate , Glucose Level 91, Calcium Level 8.5, Phosphorus Level 4.3, Magnesium Level 1.6L, Total Bilirubin 0.2, Aspartate Amino Transf (AST/SGOT) 15 , Alanine Aminotransferase (ALT/SGPT) 17, Alkaline Phosphatase 43L, C-Reactive Protein, Quantitative < 0.4, Total Protein 6.7, Albumin 2.5L, Globulin 4.2, Albumin/Globulin Ratio 0.6L Current Medications Medications (Trade) Dose Ordered Sig/Benjamin Route PRN Reason Start Time Stop Time Status Last Admin Dose Admin Acetaminophen (Tylenol) 650 mg Q4H PRN ORAL fever 02/20/19 00:00 03/19/19 15:59 02/21/19 02:05 Albuterol/ Ipratropium (Albuterol/ Ipratropium) 3 ml Q6HRT PRN HHN dyspnea 02/20/19 01:00 02/22/19 15:59 Clonidine HCl (Catapres Tab) 0.1 mg Q4H PRN ORAL For High Blood Pressure 02/20/19 00:00 03/19/19 15:59 02/20/19 04:01 Dextrose (Dextrose 50%) 25 ml Q30M PRN IV Hypoglycemia 02/19/19 22:45 03/19/19 16:05 Dextrose (Dextrose 50%) 50 ml Q30M PRN IV hypoglycemia 02/19/19 22:45 03/19/19 16:14 Docusate Sodium (Colace) 100 mg THREE TIMES A DAY ORAL 02/20/19 09:00 03/20/19 17:59 02/21/19 09:19 Heparin Sodium (Porcine) (Heparin 5000 units/ml) 5,000 units EVERY 12 HOURS SUBQ 02/20/19 09:00 03/19/19 20:59 02/21/19 09:20 Insulin Aspart (NovoLOG) BEFORE MEALS AND HS SUBQ 02/20/19 06:30 03/19/19 16:29 Lorazepam (Ativan) 2 mg Q6H PRN ORAL For Anxiety 02/19/19 23:30 02/26/19 17:29 Magnesium Sulfate 100 ml @ 100 mls/hr ONCE ONCE IVPB 02/21/19 12:00 02/21/19 12:59 Morphine Sulfate (Morphine Sulfate) 1 mg Q4H PRN IVP For Pain 02/20/19 00:00 02/24/19 15:59 02/21/19 06:21 Ondansetron HCl (Zofran) 4 mg Q6H PRN IVP Nausea & Vomiting 02/20/19 04:00 03/19/19 15:59 Pantoprazole (Protonix) 40 mg EVERY 12 HOURS ORAL 02/20/19 09:00 03/20/19 20:59 02/21/19 09:19 Zolpidem Tartrate (Ambien) 5 mg HSPRN PRN ORAL Insomnia 02/20/19 16:00 02/24/19 15:59 Kristine Pedraza MD Feb 21, 2019 12:17
[2019-02-21] MEDS ORDERED: ALLOPURINOL300 M1 ORAL (12:21)
[2019-02-21] MEDS ORDERED: LISINOPRIL40 MG ORAL (12:21)
[2019-02-21] MEDS ORDERED: GLYBURIDE5 MG PO (12:21)
[2019-02-21] MEDS ORDERED: SIMVASTATIN10 MG ORAL (12:21)
[2019-02-21] MEDS ORDERED: INDOMETHACIN50 MG PO (12:21)
[2019-02-21] MEDS ORDERED: ZANTAC150 MG ORAL (12:21)
[2019-02-21] MEDS ORDERED: METFORMIN HCL1000 M1 ORAL (12:21)
[2019-02-21 16:00] VITALS: BP 164/75
[2019-02-21 20:00] VITALS: BP 138/68
--- NOTE | 2019-02-21 20:45 | Internal Med Progress Note ---
Subjective Date of Service: Feb 21, 2019 Physician Name Braeden Barnes Attending Physician Pola Castellon MD Current Medications Medications (Trade) Dose Ordered Sig/Benjamin Route PRN Reason Start Time Stop Time Status Last Admin Dose Admin Acetaminophen (Tylenol) 650 mg Q4H PRN ORAL fever 02/20/19 00:00 03/19/19 15:59 02/21/19 02:05 Albuterol/ Ipratropium (Albuterol/ Ipratropium) 3 ml Q6HRT PRN HHN dyspnea 02/20/19 01:00 02/22/19 15:59 Clonidine HCl (Catapres Tab) 0.1 mg Q4H PRN ORAL For High Blood Pressure 02/20/19 00:00 03/19/19 15:59 02/21/19 14:04 Dextrose (Dextrose 50%) 25 ml Q30M PRN IV Hypoglycemia 02/19/19 22:45 03/19/19 16:05 Dextrose (Dextrose 50%) 50 ml Q30M PRN IV hypoglycemia 02/19/19 22:45 03/19/19 16:14 Docusate Sodium (Colace) 100 mg THREE TIMES A DAY ORAL 02/20/19 09:00 03/20/19 17:59 02/21/19 09:19 Heparin Sodium (Porcine) (Heparin 5000 units/ml) 5,000 units EVERY 12 HOURS SUBQ 02/20/19 09:00 03/19/19 20:59 02/21/19 20:22 Insulin Aspart (NovoLOG) BEFORE MEALS AND HS SUBQ 02/20/19 06:30 03/19/19 16:29 Lorazepam (Ativan) 2 mg Q6H PRN ORAL For Anxiety 02/19/19 23:30 02/26/19 17:29 Morphine Sulfate (Morphine Sulfate) 1 mg Q4H PRN IVP For Pain 02/20/19 00:00 02/24/19 15:59 02/21/19 20:21 Ondansetron HCl (Zofran) 4 mg Q6H PRN IVP Nausea & Vomiting 02/20/19 04:00 03/19/19 15:59 Pantoprazole (Protonix) 40 mg EVERY 12 HOURS ORAL 02/20/19 09:00 03/20/19 20:59 02/21/19 20:21 Zolpidem Tartrate (Ambien) 5 mg HSPRN PRN ORAL Insomnia 02/20/19 16:00 02/24/19 15:59 Allergies: Coded Allergies: No Known Allergies (Unverified , 02/17/19) ROS Limited/Unobtainable: No Constitutional: Reports: no symptoms HEENT: Reports: no symptoms Cardiovascular: Reports: no symptoms Respiratory: Reports: no symptoms Gastrointestinal/Abdominal: Reports: no symptoms Genitourinary: Reports: no symptoms Neurologic/Psychiatric: Reports: no symptoms Subjective 78 YO M admitted with hyperkalemia. Now new onset renal failure. Cover for Int Darshan-Dr Castellon Objective Last Vital Signs Date Time Temp Pulse Resp B/P (MAP) Pulse Ox O2 Delivery O2 Flow Rate FiO2 02/21/19 16:00 97.8 80 18 164/75 (104) 02/21/19 09:00 Room Air 02/21/19 07:18 96 21 Laboratory Tests Test 02/21/19 06:12 White Blood Count 7.9 K/UL (4.8-10.8) Red Blood Count 4.12 M/UL (4.70-6.10) L Hemoglobin 10.9 G/DL (14.2-18.0) L Hematocrit 35.0 % (42.0-52.0) L Mean Corpuscular Volume 85 FL (80-99) Mean Corpuscular Hemoglobin 26.4 PG (27.0-31.0) L Mean Corpuscular Hemoglobin Concent 31.0 G/DL (32.0-36.0) L Red Cell Distribution Width 17.0 % (11.6-14.8) H Platelet Count 509 K/UL (150-450) H Mean Platelet Volume 6.4 FL (6.5-10.1) L Neutrophils (%) (Auto) 46.2 % (45.0-75.0) Lymphocytes (%) (Auto) 38.8 % (20.0-45.0) Monocytes (%) (Auto) 9.5 % (1.0-10.0) Eosinophils (%) (Auto) 3.9 % (0.0-3.0) H Basophils (%) (Auto) 1.5 % (0.0-2.0) Erythrocyte Sedimentation Rate 37 MM/HR (0-20) H Sodium Level 140 MMOL/L (136-145) Potassium Level 4.4 MMOL/L (3.5-5.1) Chloride Level 110 MMOL/L (98-107) H Carbon Dioxide Level 22 MMOL/L (21-32) Anion Gap 8 mmol/L (5-15) Blood Urea Nitrogen 20 mg/dL (7-18) H Creatinine 1.4 MG/DL (0.55-1.30) H Estimat Glomerular Filtration Rate mL/min (>60) Glucose Level 91 MG/DL (74-106) Calcium Level 8.5 MG/DL (8.5-10.1) Phosphorus Level 4.3 MG/DL (2.5-4.9) Magnesium Level 1.6 MG/DL (1.8-2.4) L Total Bilirubin 0.2 MG/DL (0.2-1.0) Aspartate Amino Transf (AST/SGOT) 15 U/L (15-37) Alanine Aminotransferase (ALT/SGPT) 17 U/L (12-78) Alkaline Phosphatase 43 U/L (46-116) L C-Reactive Protein, Quantitative < 0.4 mg/dL (0.00-0.90) Total Protein 6.7 G/DL (6.4-8.2) Albumin 2.5 G/DL (3.4-5.0) L Globulin 4.2 g/dL Albumin/Globulin Ratio 0.6 (1.0-2.7) L Microbiology Date/Time Source Procedure Growth Status 02/19/19 18:00 Stool Clostridium difficile Toxin Assay - Final Complete Intake and Output 02/20/19 02/21/19 19:00 07:00 Intake Total 865 ml 450 ml Balance 865 ml 450 ml Intake Oral 640 ml 450 ml IV Total 225 ml # Voids 3 2 # Bowel Movements 2 1 Objective PHYSICAL EXAMINATION: GENERAL: The patient is a well-developed and well-nourished male, in no apparent distress. HEENT: Eyes, pupils are equal and responsive to light and accommodation. Extraocular movements are intact. NECK: Supple without lymphadenopathy. CHEST: Lungs are clear to auscultation bilaterally without wheezes or rales. CARDIOVASCULAR: Regular rhythm and rate. S1, S2 are normal without murmurs, rubs, or gallops. ABDOMEN: Soft, nontender, and nondistended. Positive bowel sounds. No evidence of hepatosplenomegaly. Currently, no rebound or guarding noted. EXTREMITY: Negative for clubbing, cyanosis, or edema. RECTAL/GENITAL: Refused. NEUROLOGIC: Cranial nerves II through XII are grossly intact without focal deficits. Motor strength is 5/5 bilaterally. Deep tendon reflexes are 2+ plantar. Assessment/Plan Assessment/Plan ASSESSMENT: This is a 78-year-old male. 1. Hyperkalemia. 2. New onset renal failure. 3. Hypertension. 4. Diabetes type 2. 5. Gout. 6. Osteoarthritis. 7. Gastroesophageal reflux disease. 8. Osteoarthritis. 9. Generalized weakness. TREATMENT: 1. Hyperkalemia/renal failure. Resolved with Kayexalate. A Nephrology consultation has been obtained with Dr. Vinson. Hyperkalemia may be secondary to renal failure. We will follow recommendations of Nephrology. 2. Hypertension. The patient is currently hypotensive. 3. Diabetes type 2. A NovoLog sliding scale has been instituted. 4. Gout. Continue allopurinol as above. 5. Osteoarthritis. 6. Gastroesophageal reflux disease. Continue ranitidine as above. 7. Osteoarthritis. Braeden Barnes MD Feb 21, 2019 20:45
[2019-02-22] VITALS: BP 147/78
[2019-02-22] MEDS: Morphine Sulfate 2mg/ml Inj(IV/IM USE ONLY) IVP PRN ×2 (03:29→21:00)
[2019-02-22 04:00] VITALS: BP 137/62
[2019-02-22] MEDS: NovoLOG Insulin Flexpen SUBQ SCH ×4 (06:15→21:00)
[2019-02-22 08:00] VITALS: BP 141/65
[2019-02-22] MEDS: Docusate 100mg cap ORAL SCH ×3 (09:00→17:10)
[2019-02-22] MEDS: Heparin 5000 units/ml inj SUBQ SCH ×2 (09:13→21:07)
--- NOTE | 2019-02-22 11:31 | Pulmonology Progress Note ---
Assessment/Plan Problems: (1) ATN (acute tubular necrosis) (2) ARF (acute renal failure) (3) Hyperkalemia (4) Peripheral edema (5) Diabetes mellitus (6) History of hypertension (7) Gout Assessment/Plan no new complains all reviewed improving Optimize cardiac meds med/surg pt/ot dvt prophylaxis dc planning Subjective ROS Limited/Unobtainable: No Constitutional: Reports: no symptoms HEENT: Repors: no symptoms Respiratory: Reports: no symptoms Allergies: Coded Allergies: No Known Allergies (Unverified , 02/17/19) Objective Last 24 Hour Vital Signs Date Time Temp Pulse Resp B/P (MAP) Pulse Ox O2 Delivery O2 Flow Rate FiO2 02/22/19 08:00 97.9 103 20 141/65 (90) 95 02/22/19 04:00 98.4 73 20 137/62 (87) 97 02/22/19 00:00 98.5 77 18 147/78 (101) 99 02/21/19 23:12 75 20 96 Room Air 21 02/21/19 21:00 Room Air 02/21/19 20:00 98.5 79 18 138/68 (91) 96 02/21/19 16:00 97.8 80 18 164/75 (104) 02/21/19 14:04 167/77 02/21/19 12:00 98.2 80 18 167/77 (107) Intake and Output 02/21/19 02/22/19 18:59 06:59 # Voids 2 General Appearance: WD/WN HEENT: normocephalic Respiratory/Chest: chest wall non-tender, normal breath sounds Cardiovascular: normal peripheral pulses, normal rate Abdomen: normal bowel sounds, non distended Genitourinary: normal external genitalia Skin: no rash Microbiology Date/Time Source Procedure Growth Status 02/19/19 18:00 Stool Clostridium difficile Toxin Assay - Final Complete Current Medications Medications (Trade) Dose Ordered Sig/Benjamin Route PRN Reason Start Time Stop Time Status Last Admin Dose Admin Acetaminophen (Tylenol) 650 mg Q4H PRN ORAL fever 02/20/19 00:00 03/19/19 15:59 02/21/19 02:05 Albuterol/ Ipratropium (Albuterol/ Ipratropium) 3 ml Q6HRT PRN HHN dyspnea 02/20/19 01:00 02/22/19 15:59 Clonidine HCl (Catapres Tab) 0.1 mg Q4H PRN ORAL For High Blood Pressure 02/20/19 00:00 03/19/19 15:59 02/21/19 14:04 Dextrose (Dextrose 50%) 25 ml Q30M PRN IV Hypoglycemia 02/19/19 22:45 03/19/19 16:05 Dextrose (Dextrose 50%) 50 ml Q30M PRN IV hypoglycemia 02/19/19 22:45 03/19/19 16:14 Docusate Sodium (Colace) 100 mg THREE TIMES A DAY ORAL 02/20/19 09:00 03/20/19 17:59 02/21/19 09:19 Heparin Sodium (Porcine) (Heparin 5000 units/ml) 5,000 units EVERY 12 HOURS SUBQ 02/20/19 09:00 03/19/19 20:59 02/22/19 09:13 Insulin Aspart (NovoLOG) BEFORE MEALS AND HS SUBQ 02/20/19 06:30 03/19/19 16:29 Lorazepam (Ativan) 2 mg Q6H PRN ORAL For Anxiety 02/19/19 23:30 02/26/19 17:29 Morphine Sulfate (Morphine Sulfate) 1 mg Q4H PRN IVP For Pain 02/20/19 00:00 02/24/19 15:59 02/22/19 03:29 Ondansetron HCl (Zofran) 4 mg Q6H PRN IVP Nausea & Vomiting 02/20/19 04:00 03/19/19 15:59 Pantoprazole (Protonix) 40 mg EVERY 12 HOURS ORAL 02/20/19 09:00 03/20/19 20:59 02/22/19 09:12 Zolpidem Tartrate (Ambien) 5 mg HSPRN PRN ORAL Insomnia 02/20/19 16:00 02/24/19 15:59 Kristine Pedraza MD Feb 22, 2019 11:31
[2019-02-22 12:00] VITALS: BP 140/64
--- NOTE | 2019-02-22 14:31 | Cardiology Report ---
APPROVED REPORT EKG Measurement Heart [id number] MD [id number] Sinus bradycardia Nonspecific T wave abnormality Abnormal ECG
[2019-02-22 16:00] VITALS: BP 111/58
--- NOTE | 2019-02-22 18:49 | Internal Med Progress Note ---
Subjective Date of Service: Feb 22, 2019 Physician Name Braeden Barnes Attending Physician Pola Castellon MD Current Medications Medications (Trade) Dose Ordered Sig/Benjamin Route PRN Reason Start Time Stop Time Status Last Admin Dose Admin Acetaminophen (Tylenol) 650 mg Q4H PRN ORAL fever 02/20/19 00:00 03/19/19 15:59 02/21/19 02:05 Clonidine HCl (Catapres Tab) 0.1 mg Q4H PRN ORAL For High Blood Pressure 02/20/19 00:00 03/19/19 15:59 02/21/19 14:04 Dextrose (Dextrose 50%) 25 ml Q30M PRN IV Hypoglycemia 02/19/19 22:45 03/19/19 16:05 Dextrose (Dextrose 50%) 50 ml Q30M PRN IV hypoglycemia 02/19/19 22:45 03/19/19 16:14 Docusate Sodium (Colace) 100 mg THREE TIMES A DAY ORAL 02/20/19 09:00 03/20/19 17:59 02/21/19 09:19 Heparin Sodium (Porcine) (Heparin 5000 units/ml) 5,000 units EVERY 12 HOURS SUBQ 02/20/19 09:00 03/19/19 20:59 02/22/19 09:13 Insulin Aspart (NovoLOG) BEFORE MEALS AND HS SUBQ 02/20/19 06:30 03/19/19 16:29 Lorazepam (Ativan) 2 mg Q6H PRN ORAL For Anxiety 02/19/19 23:30 02/26/19 17:29 Morphine Sulfate (Morphine Sulfate) 1 mg Q4H PRN IVP For Pain 02/20/19 00:00 02/24/19 15:59 02/22/19 03:29 Ondansetron HCl (Zofran) 4 mg Q6H PRN IVP Nausea & Vomiting 02/20/19 04:00 03/19/19 15:59 Pantoprazole (Protonix) 40 mg EVERY 12 HOURS ORAL 02/20/19 09:00 03/20/19 20:59 02/22/19 09:12 Zolpidem Tartrate (Ambien) 5 mg HSPRN PRN ORAL Insomnia 02/20/19 16:00 02/24/19 15:59 Allergies: Coded Allergies: No Known Allergies (Unverified , 02/17/19) ROS Limited/Unobtainable: No Constitutional: Reports: no symptoms HEENT: Reports: no symptoms Cardiovascular: Reports: no symptoms Respiratory: Reports: no symptoms Gastrointestinal/Abdominal: Reports: no symptoms Genitourinary: Reports: no symptoms Neurologic/Psychiatric: Reports: no symptoms Subjective 78 YO M admitted with hyperkalemia. Now new onset renal failure. Cover for Int Med-Dr Castellon Objective Last Vital Signs Date Time Temp Pulse Resp B/P (MAP) Pulse Ox O2 Delivery O2 Flow Rate FiO2 02/22/19 16:00 98.1 76 18 111/58 (75) 98 02/22/19 09:00 Room Air 02/21/19 23:12 21 Intake and Output 02/21/19 02/22/19 19:00 07:00 # Voids 2 Objective PHYSICAL EXAMINATION: GENERAL: The patient is a well-developed and well-nourished male, in no apparent distress. HEENT: Eyes, pupils are equal and responsive to light and accommodation. Extraocular movements are intact. NECK: Supple without lymphadenopathy. CHEST: Lungs are clear to auscultation bilaterally without wheezes or rales. CARDIOVASCULAR: Regular rhythm and rate. S1, S2 are normal without murmurs, rubs, or gallops. ABDOMEN: Soft, nontender, and nondistended. Positive bowel sounds. No evidence of hepatosplenomegaly. Currently, no rebound or guarding noted. EXTREMITY: Negative for clubbing, cyanosis, or edema. RECTAL/GENITAL: Refused. NEUROLOGIC: Cranial nerves II through XII are grossly intact without focal deficits. Motor strength is 5/5 bilaterally. Deep tendon reflexes are 2+ plantar. Assessment/Plan Assessment/Plan ASSESSMENT: This is a 78-year-old male. 1. Hyperkalemia. 2. New onset renal failure. 3. Hypertension. 4. Diabetes type 2. 5. Gout. 6. Osteoarthritis. 7. Gastroesophageal reflux disease. 8. Osteoarthritis. 9. Generalized weakness. TREATMENT: 1. Hyperkalemia/renal failure. Hyperkalemia Resolved with Kayexalate. A Nephrology consultation has been obtained with Dr. Vinson. Renal function Improved. We will follow recommendations of Nephrology. 2. Hypertension. The patient is currently hypotensive. 3. Diabetes type 2. A NovoLog sliding scale has been instituted. 4. Gout. Continue allopurinol as above. 5. Osteoarthritis. 6. Gastroesophageal reflux disease. Continue ranitidine as above. 7. Osteoarthritis. 8. Discharge planning Braeden Barnes MD Feb 22, 2019 18:49
[2019-02-22 20:00] VITALS: BP 137/82
[2019-02-23] MEDS: NovoLOG Insulin Flexpen SUBQ SCH ×3 (06:30→16:30)
[2019-02-23 07:08] LABS: BASOPHILS % (AUTO) 1.2 % (0.0-2.0); EOSINOPHILS % (AUTO) 3.9 % (0.0-3.0); HEMATOCRIT 37.5 % (42.0-52.0); HEMOGLOBIN 11.5 G/DL (14.2-18.0); LYMPHOCYTES % (AUTO) 30.7 % (20.0-45.0); MEAN CORPUSCULAR VOLUME 85 FL (80-99); MONOCYTES % (AUTO) 10.9 % (1.0-10.0); NEUTROPHILS % (AUTO) 53.3 % (45.0-75.0); PLATELET COUNT 480 K/UL (150-450); RED BLOOD COUNT 4.44 M/UL (4.70-6.10); RED CELL DISTRIBUTION WIDTH 17.2 % (11.6-14.8); WHITE BLOOD COUNT 8.2 K/UL (4.8-10.8)
[2019-02-23 07:10] LABS: ANION GAP 9 mmol/L (5-15); BLOOD UREA NITROGEN 19 mg/dL (7-18); CALCIUM 9.3 MG/DL (8.5-10.1); CARBON DIOXIDE 23 MMOL/L (21-32); CHLORIDE 108 MMOL/L (98-107); CREATININE 1.2 MG/DL (0.55-1.30); POTASSIUM 4.4 MMOL/L (3.5-5.1); SODIUM 140 MMOL/L (136-145)
[2019-02-23 07:54] VITALS: BP 176/85
[2019-02-23] MEDS: Docusate 100mg cap ORAL SCH ×3 (08:13→16:34)
[2019-02-23] MEDS: Heparin 5000 units/ml inj SUBQ SCH (08:14)
[2019-02-23] MEDS: Morphine Sulfate 2mg/ml Inj(IV/IM USE ONLY) IVP PRN (08:15)
--- NOTE | 2019-02-23 11:20 | Pulmonology Progress Note ---
Assessment/Plan Problems: (1) ATN (acute tubular necrosis) (2) ARF (acute renal failure) (3) Hyperkalemia (4) Peripheral edema (5) Diabetes mellitus (6) History of hypertension (7) Gout Assessment/Plan no new complains all reviewed improving Optimize cardiac meds med/surg pt/ot dvt prophylaxis dc planning Subjective ROS Limited/Unobtainable: No Constitutional: Reports: no symptoms HEENT: Repors: no symptoms Respiratory: Reports: no symptoms Allergies: Coded Allergies: No Known Allergies (Unverified , 02/17/19) Objective Last 24 Hour Vital Signs Date Time Temp Pulse Resp B/P (MAP) Pulse Ox O2 Delivery O2 Flow Rate FiO2 02/23/19 07:54 98.2 78 19 176/85 (115) 99 02/23/19 07:30 Room Air 02/22/19 21:00 Room Air 02/22/19 20:00 97.0 90 18 137/82 (100) 99 02/22/19 16:00 98.1 76 18 111/58 (75) 98 02/22/19 12:00 98.9 76 20 140/64 (89) 97 Intake and Output 02/22/19 02/23/19 19:00 07:00 Intake Total 780 ml 375 ml Balance 780 ml 375 ml Intake Oral 780 ml 375 ml # Voids 2 General Appearance: WD/WN HEENT: normocephalic, atraumatic Respiratory/Chest: chest wall non-tender, lungs clear Cardiovascular: normal peripheral pulses, regular rhythm Abdomen: normal bowel sounds, no organomegaly Genitourinary: normal external genitalia Extremities: no clubbing Skin: no rash Laboratory Tests 02/23/19 06:03: White Blood Count 8.2, Red Blood Count 4.44L, Hemoglobin 11.5L, Hematocrit 37.5L , Mean Corpuscular Volume 85, Mean Corpuscular Hemoglobin 25.9L, Mean Corpuscular Hemoglobin Concent 30.6L, Red Cell Distribution Width 17.2H, Platelet Count 480H, Mean Platelet Volume 6.7, Neutrophils (%) (Auto) 53.3, Lymphocytes (%) (Auto) 30.7, Monocytes (%) (Auto) 10.9H, Eosinophils (%) (Auto) 3.9H, Basophils (%) (Auto) 1.2, Sodium Level 140, Potassium Level 4.4, Chloride Level 108H, Carbon Dioxide Level 23, Anion Gap 9, Blood Urea Nitrogen 19H, Creatinine 1.2, Estimat Glomerular Filtration Rate , Glucose Level 85, Calcium Level 9.3 Current Medications Medications (Trade) Dose Ordered Sig/Benjamin Route PRN Reason Start Time Stop Time Status Last Admin Dose Admin Acetaminophen (Tylenol) 650 mg Q4H PRN ORAL fever 02/20/19 00:00 03/19/19 15:59 02/21/19 02:05 Clonidine HCl (Catapres Tab) 0.1 mg Q4H PRN ORAL For High Blood Pressure 02/20/19 00:00 03/19/19 15:59 02/21/19 14:04 Dextrose (Dextrose 50%) 25 ml Q30M PRN IV Hypoglycemia 02/19/19 22:45 03/19/19 16:05 Dextrose (Dextrose 50%) 50 ml Q30M PRN IV hypoglycemia 02/19/19 22:45 03/19/19 16:14 Docusate Sodium (Colace) 100 mg THREE TIMES A DAY ORAL 02/20/19 09:00 03/20/19 17:59 02/23/19 08:13 Heparin Sodium (Porcine) (Heparin 5000 units/ml) 5,000 units EVERY 12 HOURS SUBQ 02/20/19 09:00 03/19/19 20:59 02/23/19 08:14 Insulin Aspart (NovoLOG) BEFORE MEALS AND HS SUBQ 02/20/19 06:30 03/19/19 16:29 Lorazepam (Ativan) 2 mg Q6H PRN ORAL For Anxiety 02/19/19 23:30 02/26/19 17:29 Morphine Sulfate (Morphine Sulfate) 1 mg Q4H PRN IVP For Pain 02/20/19 00:00 02/24/19 15:59 02/23/19 08:15 Ondansetron HCl (Zofran) 4 mg Q6H PRN IVP Nausea & Vomiting 02/20/19 04:00 03/19/19 15:59 Pantoprazole (Protonix) 40 mg EVERY 12 HOURS ORAL 02/20/19 09:00 03/20/19 20:59 02/23/19 08:17 Zolpidem Tartrate (Ambien) 5 mg HSPRN PRN ORAL Insomnia 02/20/19 16:00 02/24/19 15:59 Kristine Pedraza MD Feb 23, 2019 11:20
[2019-02-23 11:48] VITALS: BP 126/82
[2019-02-23 16:00] VITALS: BP 128/85
--- NOTE | 2019-02-23 19:15 | Internal Med Progress Note ---
Subjective Date of Service: Feb 23, 2019 Physician Name Braeden Barnes Attending Physician Pola Castellon MD Current Medications Medications (Trade) Dose Ordered Sig/Benjamin Route PRN Reason Start Time Stop Time Status Last Admin Dose Admin Acetaminophen (Tylenol) 650 mg Q4H PRN ORAL fever 02/20/19 00:00 03/19/19 15:59 02/21/19 02:05 Clonidine HCl (Catapres Tab) 0.1 mg Q4H PRN ORAL For High Blood Pressure 02/20/19 00:00 03/19/19 15:59 02/21/19 14:04 Dextrose (Dextrose 50%) 25 ml Q30M PRN IV Hypoglycemia 02/19/19 22:45 03/19/19 16:05 Dextrose (Dextrose 50%) 50 ml Q30M PRN IV hypoglycemia 02/19/19 22:45 03/19/19 16:14 Docusate Sodium (Colace) 100 mg THREE TIMES A DAY ORAL 02/20/19 09:00 03/20/19 17:59 02/23/19 08:13 Heparin Sodium (Porcine) (Heparin 5000 units/ml) 5,000 units EVERY 12 HOURS SUBQ 02/20/19 09:00 03/19/19 20:59 02/23/19 08:14 Insulin Aspart (NovoLOG) BEFORE MEALS AND HS SUBQ 02/20/19 06:30 03/19/19 16:29 Lorazepam (Ativan) 2 mg Q6H PRN ORAL For Anxiety 02/19/19 23:30 02/26/19 17:29 Morphine Sulfate (Morphine Sulfate) 1 mg Q4H PRN IVP For Pain 02/20/19 00:00 02/24/19 15:59 02/23/19 08:15 Ondansetron HCl (Zofran) 4 mg Q6H PRN IVP Nausea & Vomiting 02/20/19 04:00 03/19/19 15:59 Pantoprazole (Protonix) 40 mg EVERY 12 HOURS ORAL 02/20/19 09:00 03/20/19 20:59 02/23/19 08:17 Zolpidem Tartrate (Ambien) 5 mg HSPRN PRN ORAL Insomnia 02/20/19 16:00 02/24/19 15:59 Allergies: Coded Allergies: No Known Allergies (Unverified , 02/17/19) ROS Limited/Unobtainable: No Constitutional: Reports: no symptoms HEENT: Reports: no symptoms Cardiovascular: Reports: no symptoms Respiratory: Reports: no symptoms Gastrointestinal/Abdominal: Reports: no symptoms Genitourinary: Reports: no symptoms Neurologic/Psychiatric: Reports: no symptoms Subjective 78 YO M admitted with hyperkalemia. Now new onset renal failure. Cover for Int Darshan-Dr Castellon Objective Last Vital Signs Date Time Temp Pulse Resp B/P (MAP) Pulse Ox O2 Delivery O2 Flow Rate FiO2 02/23/19 16:00 98.0 87 19 128/85 (99) 98 02/23/19 07:30 Room Air 02/21/19 23:12 21 Laboratory Tests Test 02/23/19 06:03 White Blood Count 8.2 K/UL (4.8-10.8) Red Blood Count 4.44 M/UL (4.70-6.10) L Hemoglobin 11.5 G/DL (14.2-18.0) L Hematocrit 37.5 % (42.0-52.0) L Mean Corpuscular Volume 85 FL (80-99) Mean Corpuscular Hemoglobin 25.9 PG (27.0-31.0) L Mean Corpuscular Hemoglobin Concent 30.6 G/DL (32.0-36.0) L Red Cell Distribution Width 17.2 % (11.6-14.8) H Platelet Count 480 K/UL (150-450) H Mean Platelet Volume 6.7 FL (6.5-10.1) Neutrophils (%) (Auto) 53.3 % (45.0-75.0) Lymphocytes (%) (Auto) 30.7 % (20.0-45.0) Monocytes (%) (Auto) 10.9 % (1.0-10.0) H Eosinophils (%) (Auto) 3.9 % (0.0-3.0) H Basophils (%) (Auto) 1.2 % (0.0-2.0) Sodium Level 140 MMOL/L (136-145) Potassium Level 4.4 MMOL/L (3.5-5.1) Chloride Level 108 MMOL/L (98-107) H Carbon Dioxide Level 23 MMOL/L (21-32) Anion Gap 9 mmol/L (5-15) Blood Urea Nitrogen 19 mg/dL (7-18) H Creatinine 1.2 MG/DL (0.55-1.30) Estimat Glomerular Filtration Rate mL/min (>60) Glucose Level 85 MG/DL (74-106) Calcium Level 9.3 MG/DL (8.5-10.1) Intake and Output 02/22/19 02/23/19 18:59 06:59 Intake Total 780 ml 375 ml Balance 780 ml 375 ml Intake Oral 780 ml 375 ml # Voids 2 Objective PHYSICAL EXAMINATION: GENERAL: The patient is a well-developed and well-nourished male, in no apparent distress. HEENT: Eyes, pupils are equal and responsive to light and accommodation. Extraocular movements are intact. NECK: Supple without lymphadenopathy. CHEST: Lungs are clear to auscultation bilaterally without wheezes or rales. CARDIOVASCULAR: Regular rhythm and rate. S1, S2 are normal without murmurs, rubs, or gallops. ABDOMEN: Soft, nontender, and nondistended. Positive bowel sounds. No evidence of hepatosplenomegaly. Currently, no rebound or guarding noted. EXTREMITY: Negative for clubbing, cyanosis, or edema. RECTAL/GENITAL: Refused. NEUROLOGIC: Cranial nerves II through XII are grossly intact without focal deficits. Motor strength is 5/5 bilaterally. Deep tendon reflexes are 2+ plantar. Assessment/Plan Assessment/Plan ASSESSMENT: This is a 78-year-old male. 1. Hyperkalemia. 2. New onset renal failure. 3. Hypertension. 4. Diabetes type 2. 5. Gout. 6. Osteoarthritis. 7. Gastroesophageal reflux disease. 8. Osteoarthritis. 9. Generalized weakness. TREATMENT: 1. Hyperkalemia/renal failure. Hyperkalemia Resolved with Kayexalate. A Nephrology consultation has been obtained with Dr. Vinson. Renal function Improved. We will follow recommendations of Nephrology. 2. Hypertension. The patient is currently hypotensive. 3. Diabetes type 2. A NovoLog sliding scale has been instituted. 4. Gout. Continue allopurinol as above. 5. Osteoarthritis. 6. Gastroesophageal reflux disease. Continue ranitidine as above. 7. Osteoarthritis. 8. Discharge to [facility] today Braeden Barnes MD Feb 23, 2019 19:15
--- NOTE | 2019-02-24 10:50 | Discharge Summary ---
Discharge Summary Discharge Summary _ DATE OF ADMISSION: 02/17/2019 DATE OF DISCHARGE: 02/23/2019 DISCHARGED BY: Dr. Kristine Pedraza CONSULTANTS: Dr. Kristine Vinson BRIEF HOSPITAL COURSE: Patient is a 78-year-old -[place] male, who presented with chief complaint of abnormal laboratories. The patient was apparently admitted to [facility] 2 weeks prior. He was noted to have generalized weakness and was found to have hypokalemia. Patient was discharged to [facility]. Routine laboratories done at [facility] revealed potassium level of 6.2. BUN and creatinine were found to be elevated at 34 and 2.8. Patient was then transferred to [facility] for new onset renal failure and hyperkalemia. He has medical history significant for hypertension, type 2 diabetes, generalized osteoarthritis, gout, hypercholesterolemia, anemia and GERD. On evaluation at ED, patient was hypotensive. Blood pressure was 86/45. He was given gentle IV hydration. Blood work potassium level 6.7. BUN 42, creatinine 3.7. Urinalysis with 2+ protein, 1+ ketone, 2+ bilirubin, 3+ leukocyte esterase, 0-2 urine RBC, 20-30 urine WBC. Random urine sodium 132. Urine creatinine 322. X-ray did not show any acute findings. He was given Kayexalate. He was given lasix and calcium gluconate. He was started empirically on Rocephin. He was then admitted for acute renal failure and hyperkalemia. Container Coordinator was consulted. Patient had new onset renal failure likely prerenal. He was continued on slow IV hydration. Ultrasound of the kidneys showed incidental finding of right renal cysts. Negative for hydronephrosis. Both kidneys with normal echogenicity. Blood glucose was monitored. He was placed on insulin sliding scale. Echocardiogram showed EF 55%. Urine culture with growth of Proteus with colony count 40,000-50,000. He was given PT mobility. Hyperkalemia resolved. Kidney function normalized. He was given magnesium supplement. He was eventually cleared for discharge back to skilled nursing. FINAL DIAGNOSES: Acute kidney injury Hyperkalemia Hypertension Type 2 diabetes Gout Osteoarthritis GERD Peripheral edema DISPOSITION: Patient was discharged to a SNF. DISCHARGE MEDICATIONS: Refer to Discharge Medication List. I have been assigned to complete a discharge summary on this account, I was not involved with the patient's management. Yvette Barker NP Feb 24, 2019 10:50
== END 2019-02-23 20:55 | DRG 640 ==
LOC: EDBD 12:41 → EMR 14:19 → 2E 15:25 → EDBEDREQ 17:02 → 2E 17:50 → 3E 02-19 22:30
DX: E87.5 Hyperkalemia (principal); N17.0 Acute kidney failure with tubular necrosis; I10 Essential (primary) hypertension; E11.9 Type 2 diabetes mellitus without complications; M10.9 Gout, unspecified; E78.00 Pure hypercholesterolemia, unspecified; K21.9 Gastro-esophageal reflux disease without esophagitis; Z79.82 Long term (current) use of aspirin; M19.90 Unspecified osteoarthritis, unspecified site; E86.0 Dehydration
CPT/HCPCS: 36415; 71045; 76770; 80048; 80053; 80061; 81001; 81003; 82043; 82550; 82570; 82607; 82728; 82746; 82962; 82977; 83036; 83540; 83550; 83735; 83880; 83935; 84100; 84300; 84443; 84484; 84550; 85025; 85610; 85651; 85730; 86140; 87081; 87086; 87181; 87324; 89050; 93005; 93306; 94664; 96365; 96375; 99285; J1815